=== PATIENT | female | born 1945 | race Caucasian/White ===

== ENCOUNTER 2019-01-10 11:17 | Inpatient (IN) | payer MEDICARE, MEDICAID ==
[~2019-01-10] VITALS: Ht 165.1 cm; Wt 67.6 kg
[2019-01-10] MEDS ORDERED: CYCL10TA9 PO (11:52)
[2019-01-10] MEDS ORDERED: METO25TA4 PO (11:52)
[2019-01-10] MEDS ORDERED: HYDR-3972 PO (11:52)
[2019-01-10] MEDS ORDERED: LISI2.5T2 PO (11:52)
[2019-01-10] MEDS ORDERED: CHOL200026 PO (11:52)
[2019-01-10] MEDS ORDERED: PANT40TA4 PO (11:52)
[2019-01-10] MEDS ORDERED: CYAN100T3 GT (11:52)
[2019-01-10] MEDS ORDERED: LEVO100T9 PO (11:52)
[2019-01-10] MEDS ORDERED: OMEG1CAP PO (11:52)
[2019-01-10] MEDS ORDERED: MULT1TAB73 PO (11:52)
[2019-01-10] MEDS ORDERED: PYRI50TA15 SL (11:52)
[2019-01-10] MEDS ORDERED: ACET-73 PO (11:52)
[2019-01-10] MEDS ORDERED: OLAN10TA3 PO (11:52)
[2019-01-10] MEDS ORDERED: SUCR1ORA4 PO (11:52)
[2019-01-10] MEDS ORDERED: MELA3TAB63 PO (11:52)
[2019-01-10] MEDS ORDERED: LEVO88TA5 PO (11:53)
[2019-01-10] MEDS ORDERED: ONDA4TAB5 PO (11:57)
[2019-01-10] MEDS ORDERED: DICL100G16 TP (11:57)
[2019-01-10] MEDS ORDERED: LORAZEPAM 0.5 MG TABLET PO PRN (12:30)
[2019-01-10] MEDS ORDERED: ACETAMINOPHEN 325 MG TABLET PO PRN (12:30)
[2019-01-10] MEDS ORDERED: MAGNESIUM HYDROXIDE 30 ML UDC PO PRN (12:30)
[2019-01-10] MEDS ORDERED: TEMAZEPAM 7.5 MG CAPSULE PO PRN (12:30)
[2019-01-10] MEDS ORDERED: BLOOD SUGAR DIAGNOSTIC 1 EACH STRIP IN ONE (12:30)
[2019-01-10] MEDS ORDERED: MAG HYDROX/AL HYDROX/SIMETH 30 ML UDC PO PRN (12:30)
[2019-01-10 12:36] VITALS: BP 136/83
[2019-01-10] MEDS ORDERED: ONDANSETRON 4 MG TAB.RAPDIS PO PRN (13:00)
[2019-01-10] MEDS ORDERED: DICLOFENAC TOPICAL 100 GM GEL..GM. TP SCH (13:00)
[2019-01-10] MEDS ORDERED: MISCELLANEOUS MED 1 EA EA PO PRN (13:00)
[2019-01-10] MEDS: SUCRALFATE 1 G/10 ML UDC PO SCH ×3 (13:00→21:00)
[2019-01-10] MEDS ORDERED: LISINOPRIL (5MG) 5 MG TABLET PO SCH (13:00)
[2019-01-10] MEDS ORDERED: HYDROCODONE/APAP 5/325MG 1 EACH TABLET PO PRN (13:00)
[2019-01-10] MEDS: CHOLECALCIFEROL 1,000 UNIT TABLET (VIT D3) PO SCH (13:00)
--- NOTE | 2019-01-10 13:00 | NUR ---
GPS/RN - Admission Patient is a 73 year old female brought in to the hospital from [facility] by ambulance, admitted on a 5150 as GD. Patient with paranoid delusions, hostility, precluding her from giving a rational plan for care. Patient believes that her medical records are being taped. she is perseverative on legal issues. Medical work-up negative thus far. Upon face to face assessment patient is A/O x 3, ambulatory, angry, sarcastic, uncooperative when being asked basic admission questions, paranoid, disheveled. Patient refused to sign consents, body assessment, Accu-check and MRSA surveillance protocol. Patient oriented to the unit, all valuables accounted and checked for contraband. Patient's rights handbook and guide to prescription given. Admission orders obtained from Dr. Gresham and Dr. Jordan. Will continue to monitor [id number] for safety and behavior.
[2019-01-10] MEDS ORDERED: METO25TA20 PO (13:12)
--- NOTE | 2019-01-10 13:20 | NUR ---
gps narrow fabrics weaver: notes dr. colorado notified re: metoprolol succinate inserted in med recon was an error and change to metoprolol tartrate 12.5mg po bid with order to d'c succinate and continue tartrate 12.5mg po bid. order read back and carried out.
[2019-01-10 16:00] VITALS: BP 143/94
[2019-01-10] MEDS: METOPROLOL TARTRATE 25 MG TABLET PO SCH (17:00)
[2019-01-10] MEDS ORDERED: METOPROLOL SUCCINATE 25 MG TAB.SR.24H PO SCH (17:00)
[2019-01-10 20:43] VITALS: BP 134/83
[2019-01-10] MEDS ORDERED: Medication Not On Formulary EA (Melatonin 3 MG) PO SCH (22:00)
[2019-01-10] MEDS ORDERED: CYCLOBENZAPRINE 10 MG TABLET PO SCH (22:00)
[2019-01-10] MEDS ORDERED: OLANZAPINE 10 MG TABLET PO SCH (22:00)
--- NOTE | 2019-01-10 22:00 | NUR ---
RN NOTES: PT. REFUSED NIGHT MEDS CARAFATE 10 ML, AND ENCOURAGED , EXPLAINED RISKS AND BENEFITS STILL REFUSED .
[2019-01-11] MEDS ORDERED: LEVOTHYROXINE SODIUM 88 MCG TABLET PO SCH (06:00)
[2019-01-11] MEDS ORDERED: PANTOPRAZOLE 40 MG TABLET.DR PO SCH (06:00)
[2019-01-11] MEDS ORDERED: Medication Not On Formulary EA (Omega-3 Fatty Acids/Fish Oil (Fish Oil 1,000 Mg Capsule) PO SCH (06:00)
[2019-01-11] MEDS ORDERED: PYRIDOXINE HCL 50 MG TABLET GT SCH (06:00)
[2019-01-11 07:45] LABS: CHOLESTEROL 174 mg/dL (<200); HDL CHOLESTEROL 53 mg/dL (40-60); LDL 96 mg/dL (0-99); TRIGLYCERIDES 152 mg/dL (30-150)
[2019-01-11 07:46] LABS: ALBUMIN 2.4 g/dL (3.4-5.0); BILIRUBIN,TOTAL 0.2 mg/dL (0.2-1.0); CALCIUM, SERUM 9.1 mg/dL (8.5-10.1); CREATININE 0.8 mg/dL (0.6-1.3); POTASSIUM 3.8 mmol/L (3.5-5.1); TOTAL PROTEIN, SERUM 5.4 g/dL (6.4-8.2)
[2019-01-11 08:00] VITALS: BP 149/85
[2019-01-11] MEDS: CHOLECALCIFEROL 1,000 UNIT TABLET (VIT D3) PO SCH (08:18)
[2019-01-11] MEDS: METOPROLOL TARTRATE 25 MG TABLET PO SCH ×2 (08:18→16:14)
[2019-01-11] MEDS: SUCRALFATE 1 G/10 ML UDC PO SCH ×3 (08:19→16:14)
[2019-01-11] MEDS ORDERED: LISINOPRIL (5MG) 5 MG TABLET PO SCH (09:00)
[2019-01-11] MEDS ORDERED: CYANOCOBALAMIN 100 MCG TABLET GT SCH (09:00)
[2019-01-11] MEDS ORDERED: MULTIVITAMINS,THERAGRAN 1 UDTAB TABLET PO SCH (09:00)
[2019-01-11] MEDS: CYCLOBENZAPRINE 10 MG TABLET PO SCH ×2 (12:08→16:14)
--- NOTE | 2019-01-11 15:24 | NUR ---
INITIAL DISCHARGE PLAN: Patient wishes to return home to [address] [place] [address] [address] [facility] [address] . SW will help form a safe and proper discharge in collaboration with .
[2019-01-11 16:00] VITALS: BP 131/87
[2019-01-11 16:14] VITALS: BP 131/87
--- NOTE | 2019-01-11 17:05 | NUR ---
DR. WALKER SPOKE TO THE PT. AND THEN ORDERED TO D/C HOLD AND D/C HOME AND TO FOLLOW UP WITH PSYCH AND MEDICAL DOCTORS. PT. WITHOUT DISTRESS, DENIES SUICIDAL AND HOMICIDAL. PER PT. SHE DOESN'T NEED PSYCH AND MEDICAL PRESCRIPTIONS AND SAID SHE STILL HAVE MEDS AT HOME. PT. WAS ADVISED TO MAKE A FOLLOW UP WITH OUTSIDE PSYCH AND MEDICAL DOCTORS AND AGREED. Addendum: 01/11/19 at 1722 by LEVI MANN RN PER PT.SHE DOESN'T HAVE ANY FAMILY OR TECHNICAL PRODUCER TO NOTIFY ABOUT HER DISCHARGE AND SAID SHE HAS THE MARTINEZ TO HER HOUSE. Addendum: 01/11/19 at 1753 by LEVI MANN RN PT. IS FOR DISCHARGE HOME WITH THE ADDRESS OF [address] [address].
--- NOTE | 2019-01-11 17:35 | NUR ---
GPS/RN - Discharge Note Rossi Mcpherson is a 73 year old female, discharged home in stable condition. Reviewed discharge instructions with patient and she verbalized full understanding. Patient advised to follow up with her PMD within one week. Patient is compliant with medications, cooperative with treatment plans. Patient is alert and oriented x 3, calm, ambulates with cane, steady gait, denies pain, not in any form of distress, afebrile. Patient denies suicidal ideation or homicidal ideation, no visual or auditory hallucinations at this time and instructed to go to the nearest ER if developing SI/HI. Patient refused pictures to be taken, skin is intact. Behavior improved, psychiatric treatment plans met, medical treatment plans deferred for continual monitoring. Medications reconciled with Dr. Gresham and Dr. Jordan. Per patient, she doesn't need any prescriptions she till have some at home. Educated patient about after care plan and copy provided. Returned all personal belongings to patient and she deny any missing items. Patient left the unit at 17:30 via taxi.
--- NOTE | 2019-01-12 08:34 | NUR ---
DISCHARGE NOTE: Pt was discharged on 01/11/19 at 1730 via [facility] home to [address] [facility] [address] [facility] [address] . Per nurse, psychiatrist Dr. Gresham discharged pt due to not meeting criteria for 5150 hold.
== END 2019-01-11 17:30 | disposition home or self-care (01) | DRG 885 ==
LOC: GPS 11:17
PROVIDERS: ADMIT Psychiatry & Neurology Psychiatry; ATTEND Internal Medicine
DX: F39 Unspecified mood [affective] disorder (principal); F23 Brief psychotic disorder; F41.9 Anxiety disorder, unspecified; G89.4 Chronic pain syndrome; M19.90 Unspecified osteoarthritis, unspecified site; I10 Essential (primary) hypertension; K21.9 Gastro-esophageal reflux disease without esophagitis; F32.9 Major depressive disorder, single episode, unspecified
CPT/HCPCS: 36415; 80053-TC; 80061-TC; 87081-TC

== ENCOUNTER 2019-02-07 02:02 | Inpatient (IN) | payer MEDICARE, OTHER ==
[~2019-02-07] VITALS: Ht 167.6 cm; Wt 63.0 kg
[~2019-02-07 02:02] MED LIST: ACET-73 PO; CHOL200026 PO; CYAN100T3 GT; CYCL10TA9 PO; DICL100G16 TP; HYDR-3972 PO; LEVO88TA5 PO; LISI2.5T2 PO; MELA3TAB63 PO; METO25TA20 PO; MULT1TAB73 PO; OLAN10TA3 PO; OMEG1CAP PO; ONDA4TAB5 PO; PANT40TA4 PO; PYRI50TA15 SL; SUCR1ORA4 PO
--- NOTE | 2019-02-07 02:30 | NUR ---
PT BIBRA AND [employer] FROM HOME. 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 [employer] WAS CALLED TO INVESTIGATE. PT APPEARED CONFUSED AND PT'S APARTMENT WAS FOUND FILTHY AND DISORGANIZED". PT WAS PLACED ON HOLD BY [employer] FOR BEING GRAVELY DISABLED. PT AWAKE, REFUSES TO ANSWER ASSESSMENT QUESTIONS. RESPIRATIONS EVEN AND UNLABORED. SKIN WARM AND INTACT. VITAL SIGNS STABLE. NO ACUTE DISTRESS NOTED AT THIS TIME. SITTER AT BEDSIDE. WILL CONTINUE TO MONITOR
--- NOTE | 2019-02-07 02:31 | NUR ---
BUTTON SEWING MACHINE OPERATOR AT BEDSIDE FOR BLOOD DRAW
--- NOTE | 2019-02-07 02:45 | NUR ---
URINE COLLECTED AND SENT TO LAB
[2019-02-07 02:46] LABS: BASOPHILS % (AUTO) 0.4 % (0.0-2.0); EOSINOPHILS % (AUTO) 0.5 % (0.0-6.0); HEMATOCRIT 42 % (33-45); HEMOGLOBIN 14.2 g/dL (11.5-14.8); LYMPHOCYTES # (AUTO) 1.5 /CMM (0.8-4.8); LYMPHOCYTES % (AUTO) 12.4 % (20.0-44.0); MEAN CORPUSCULAR HGB CONC 34 g/dl (31.0-36.0); MEAN CORPUSCULAR VOLUME 97 fL (82-100); MONOCYTES # (AUTO) 1.3 /CMM (0.1-1.30); MONOCYTES % (AUTO) 10.8 % (2.0-12.0); NEUTROPHILS # (AUTO) 8.9 /CMM (1.8-8.9); NEUTROPHILS % (AUTO) 75.9 % (43.0-81.0); PLATELET COUNT (AUTO) 380 /CMM (150-450); RED BLOOD CELL COUNT(AUTO) 4.37 MIL/uL (4.0-5.2); WHITE BLOOD COUNT (AUTO) 11.7 K/uL (4.3-11.0)
[2019-02-07 03:01] LABS: ALANINE AMINOTRANSFERASE 19 U/L (12-78); ALBUMIN 3.6 g/dL (3.4-5.0); ALKALINE PHOSPHATASE 82 U/L (46-116); ASPARTATE AMINOTRANSFERASE 17 U/L (15-37); BILIRUBIN,DIRECT 0.1 mg/dL (0.0-0.2); BILIRUBIN,TOTAL 0.4 mg/dL (0.2-1.0); CALCIUM, SERUM 10.4 mg/dL (8.5-10.1); CARBON DIOXIDE 22 mmol/L (21-32); CHLORIDE 93 mmol/L (98-107); CREATININE 1.2 mg/dL (0.6-1.3); GLUCOSE 132 mg/dL (74-106); SODIUM SERUM 134 mmol/L (136-145); TOTAL PROTEIN, SERUM 7.6 g/dL (6.4-8.2); UREA NITROGEN, BLOOD 8 mg/dL (7-18)
[2019-02-07 03:02] LABS: ACETAMINOPHEN 0 ug/ml (10-30); ALCOHOL, BLOOD < 3 mg/dL (0-0); POTASSIUM 2.8 mmol/L (3.5-5.1)
[2019-02-07] MEDS ORDERED: POTASSIUM CHLORIDE 20 MEQ TAB.PRT.SR PO ONE ×3 (03:30→03:47)
[2019-02-07 03:33] LABS: APPEARANCE,URINE SL CLOUDY (CLEAR); BILIRUBIN,URINE MODERATE (NEGATIVE); BLOOD, URINE SMALL Ery/uL (NEGATIVE); COLOR,URINE YELLOW (YELLOW); KETONES,URINE >=80 (NEGATIVE); LEUKOCYTE ESTERASE ,URINE LARGE (NEGATIVE); NITRITE, URINE NEGATIVE (NEGATIVE); PROTEIN,URINE TRACE mg/dl (NEGATIVE); UGLUCOSE NEGATIVE (NEGATIVE); UROBILINOGEN,URINE 0.2 EU/dL (0.2)
--- NOTE | 2019-02-07 03:49 | NUR ---
PER DR. LOPEZ, PT MEDICALLY CLEARED FOR PSYCH EVAL. CALLED ART, APPLIANCE REPAIR TECHNICIAN. ON THE WAY TO THE HOSPITAL
[2019-02-07 03:52] LABS: BACTERIA,URINE Few /HPF (None Seen); RBC,URINE 0-2 /HPF (0-2); WBC,URINE 0-2 /HPF (0-3)
[2019-02-07 03:53] LABS: SQUAMOUS EPITHELIAL CELL,UR 0-2 /HPF (None Seen)
[2019-02-07] MEDS ORDERED: NITROFURANTOIN/NITROFURAN MAC 100 MG CAPSULE ONE (04:07)
[2019-02-07] MEDS ORDERED: NITROFURANTOIN/NITROFURAN MAC 100 MG CAPSULE PO ONE (04:30)
--- NOTE | 2019-02-07 04:36 | NUR ---
PT TAKEN UP TO FLOOR VIA [facility]
[2019-02-07] MEDS ORDERED: ACETAMINOPHEN 325 MG TABLET PO PRN (05:00)
[2019-02-07] MEDS ORDERED: MAGNESIUM HYDROXIDE 30 ML UDC PO PRN (05:00)
[2019-02-07] MEDS ORDERED: MAG HYDROX/AL HYDROX/SIMETH 30 ML UDC PO PRN (05:00)
[2019-02-07] MEDS ORDERED: BLOOD SUGAR DIAGNOSTIC 1 EACH STRIP IN ONE (05:00)
--- NOTE | 2019-02-07 05:00 | NUR ---
Admitted a 73 y/o female from Home and evaluated at [facility] On 5150 hold as GD. Per hold, the patient is hoarder who is unable to care for herself, the apartment is filled with empty boxes, broken bottles, clothing and garbage. The patient does not have food and there are maggots in the refrigerator. Patient admitting Dx. Psychosis. Medical dx. hypothyroidism, afib, gerd, ibs, chronic pain. Patient is allergic to Percodan, aspirin and oxycodone . Upon face to face evaluation, patient appeared alert and oriented x 2, paranoid, suspicious, intermittent confusion, uncooperative, disorganize, disoriented. Explained the paper works and patient refused to sign the consents. Informed of visiting hours and unit policies. Belongings and contraband checked. Q15 min checks initiated. Care plan started. Vital signs checked and recorded. Patient's rights discussed, guide to prescription meds handbook provided. Patient advised of the hold. Notified Dr. Gresham of the admission. Will monitor patient for mood, safety and behavior. Will endorse to the day shift.
[2019-02-07 06:50] VITALS: BP 106/54
[2019-02-07 07:58] LABS: CREATININE 1.1 mg/dL (0.6-1.3)
[2019-02-07 08:00] VITALS: BP 131/99
[2019-02-07] MEDS: Z GUARD REMEDY 2 OZ OINT TP SCH (09:00)
--- NOTE | 2019-02-07 09:36 | NUR ---
RN NOTE: CONTACTED [facility] TO REACH DR REAL ABOUT REVIEWING MED RECON D/T NEW ADMIT Addendum: 02/07/19 at 1146 by TIO VEGA RN INFORMED DR REAL ABOUT ADMISSION, TO REVIEW MED RECON AND LABS INCLUDING HER POTASSIUM LEVELS.
[2019-02-07] MEDS ORDERED: SPIR100T5 PO (10:52)
[2019-02-07] MEDS ORDERED: LISI10TA5 PO (10:52)
[2019-02-07] MEDS ORDERED: ONDANSETRON 4 MG TAB.RAPDIS PO PRN (12:00)
--- NOTE | 2019-02-07 12:15 | NUR ---
Psychosocial Note: I, Leslee Pinzon STRIPPING SHOVEL OPERATOR, attest to the patients previous psychosocial information dated 01/11/19 Update On Events leading to Admission and Discharge Plan: Pt has returned to the hospital within three weeks of her previous discharge date. The current plan is to increase the patient on her medications and possibly explore SNF placement as pts current living conditions are inhabitable per psychiatric hold. The pt appeared to be in a dysphoric mood with an irritable affect. Pt appeared to be ambulatory, disheveled, and malodorous. Pt is alert and oriented x2, to self and place and her thought content is confused and disorganized with incoherent speech. Pt is currently denying any suicidal or homicidal ideation as well as any visual or auditory hallucinations. SW will work with the pt and the MD regarding appropriate discharge planning. SW will form a safe and proper discharge.
--- NOTE | 2019-02-07 12:53 | NUR ---
SPOKE TO PT. AND SAID THAT SHE IS NOT ALLERGIC ON NORCO.
--- NOTE | 2019-02-07 13:36 | NUR ---
SW received a [phone] [facility] # [id number] stating that [facility]] current living conditions are uninhabitable and that 9 cats were impounded from [facility]] apartment. Per Officer Robson, the cats had not eaten in days and also were not properly cared for.
--- NOTE | 2019-02-07 15:00 | NUR ---
Group Note: SW encouraged pt to participate in group on 02/07/19 at 2pm discussing social supports. Pt refused to attend because she stated that she does not need to be in the hospital and that she will be returning to her home soon. SW encouraged her to speak about some support in her life and the pt spoke about her cats.
[2019-02-07 16:00] VITALS: BP 105/63
--- NOTE | 2019-02-07 16:30 | NUR ---
Assumed care: Received pt. awake in her room, quiet, responsive to staffs, no distress and no agitation noted. Will continue to monitor for safety.
[2019-02-07 20:11] VITALS: BP 124/77
[2019-02-07] MEDS: CYCLOBENZAPRINE 10 MG TABLET PO SCH (21:10)
[2019-02-07] MEDS: risperiDONE 1 MG TABLET PO SCH (21:10)
[2019-02-08] MEDS: LEVOTHYROXINE SODIUM 112 MCG TABLET PO SCH (06:26)
[2019-02-08] MEDS: PANTOPRAZOLE 40 MG TABLET.DR PO SCH (06:26)
[2019-02-08] MEDS: LISINOPRIL (10MG) 10 MG TABLET PO SCH (06:26)
[2019-02-08 07:10] LABS: CALCIUM, SERUM 10.1 mg/dL (8.5-10.1)
[2019-02-08 07:17] LABS: POTASSIUM 2.7 mmol/L (3.5-5.1)
--- NOTE | 2019-02-08 07:51 | NUR ---
DR. REAL WAS NOTIFIED ABOUT THE POTASSIUM OF 2.7 AND ORDERED 80 MEQ OF PO KCL
[2019-02-08 08:00] VITALS: BP 97/60
[2019-02-08] MEDS: POTASSIUM CHLORIDE 20 MEQ TAB.PRT.SR PO ONE ×2 (08:01→08:15)
[2019-02-08] MEDS: risperiDONE 1 MG TABLET PO SCH ×2 (08:06→21:00)
[2019-02-08] MEDS: Z GUARD REMEDY 2 OZ OINT TP SCH (08:07)
--- NOTE | 2019-02-08 08:42 | NUR ---
JACKIE KELLEY (HAILEE) WAS NOTIFIED THAT PT. TOOK ONLY 1 TAB OF KCL EQUIVALENT OF 20 MEQ INSTEAD OF 4 TABS EQUIVALENT OF 80 MEQ. PT. REFUSED THE REST SAYING "IT'S TOO MUCH AND CAN'T ABSORB IT". EMBROIDERY SPECIALIST SAID OK.
[2019-02-08] MEDS ORDERED: SPIRONOLACTONE 50 MG TABLET PO SCH (09:00)
[2019-02-08] MEDS: SPIRONOLACTONE 25 MG TABLET PO SCH (09:00)
[2019-02-08] MEDS: CEPHALEXIN MONOHYDRATE 500 MG CAPSULE PO SCH ×2 (12:00→21:03)
--- NOTE | 2019-02-08 12:10 | NUR ---
PT REFUSED ANTIBIOTIC KEFLEX STATING THAT "THERE IS SOMETHING FUNNY ABOUT THIS PILL AND I WILL BE FINE WITHOUT IT". PT WAS EDUCATED ON ANTIBIOTIC NEED AND CONTINUED TO REFUSE.
--- NOTE | 2019-02-08 15:15 | NUR ---
GROUP NOTE: SW encouraged pt to participate in group on 02/08/19 at 2pm discussing "discharge planning." Pt refused stating that she did not need to attend a group to discuss her discharge, pt stated that she was going to be discharged today and that she wanted to go back home. SW provided intervention and discussed that pt is unable to care for herself at home and that her current living conditions are not safe and therefore may need SNF placement as discharging her home is not a safe discharge. Pt denied that her home was inhabitable and stated that she wanted to go back and that everything being said about her living conditions was a lie. Pts insight and judgement is poor and thought process is confused and disorganized.
[2019-02-08 16:00] VITALS: BP 90/59
--- NOTE | 2019-02-08 17:31 | NUR ---
TRANSFER OPERATOR IS MADE AWARE THAT PT. AGREED FOR POTASSIUM IV AND TOLD ABOUT THE LATEST V/S OF 1599 AND TRANSFER OPERATOR SAID SHE IS AWARE.
[2019-02-08 20:00] VITALS: BP 90/56
[2019-02-08] MEDS: CYCLOBENZAPRINE 10 MG TABLET PO SCH (21:02)
[2019-02-08 22:06] VITALS: BP 102/66
--- NOTE | 2019-02-09 03:30 | NUR ---
GPS RN NOTE, PATIENT VITAL SIGNS ARE FOLLOWS B/P 102/62, PULSE 92, RES 20, SPO2 99%, TEMP 97.9. PATIENT HAS A POTASSIUM LEVEL 2.7 AT 0630 02/08/19. PATIENT TOOK 20 MEQ OF K-DUR BUT REFUSED 60 MEQ OF K-DUR ON 02/08/19. PATIENT HAS A CBC, BMP, MAG, AND PHOS ORDERED FOR THIS A.M. AT 0600. PATIENT IS WILLING TO DO IV DRIP INFUSION. PAGED [facility] AND INFORMED ALISIA LUCAS DNP OF MY FINDINGS. ALISIA LUCAS DNP ORDERED TO WAIT FOR A.M. LAB RESULTS AND TO ENDORSE RESULTS TO ROUNDING MEDICAL DOCTOR IN THE A.M. WILL CONTINUE TO MONITOR THIS PATIENT.
[2019-02-09] MEDS: LISINOPRIL (10MG) 10 MG TABLET PO SCH (06:00)
[2019-02-09] MEDS: LEVOTHYROXINE SODIUM 112 MCG TABLET PO SCH (06:50)
[2019-02-09] MEDS: PANTOPRAZOLE 40 MG TABLET.DR PO SCH (06:50)
--- NOTE | 2019-02-09 06:58 | NUR ---
RN NOTES HELD LISINOPRIL 10 MG TAB PO FOR EPISODES OF LOW BP SINCE YESTERDAY DAY SHIFT AND THROUGHOUT THE SHIFT 90/56, 101/57,102/62. WILL ENDORSE TO AM NURSE FOR CONTINUITY OF CARE.
[2019-02-09 07:25] LABS: CALCIUM, SERUM 9.2 mg/dL (8.5-10.1); CREATININE 0.9 mg/dL (0.6-1.3); MAGNESIUM 1.3 mg/dL (1.8-2.4)
[2019-02-09 07:28] LABS: BASOPHILS # (AUTO) 0.1 /CMM (0.0-0.2); BASOPHILS % (AUTO) 0.8 % (0.0-2.0); EOSINOPHILS % (AUTO) 0.7 % (0.0-6.0); HEMATOCRIT 36 % (33-45); HEMOGLOBIN 12.1 g/dL (11.5-14.8); LYMPHOCYTES # (AUTO) 2.3 /CMM (0.8-4.8); LYMPHOCYTES % (AUTO) 21.1 % (20.0-44.0); MEAN CORPUSCULAR HGB CONC 34 g/dl (31.0-36.0); MEAN CORPUSCULAR VOLUME 97 fL (82-100); MONOCYTES # (AUTO) 1.4 /CMM (0.1-1.30); MONOCYTES % (AUTO) 12.7 % (2.0-12.0); NEUTROPHILS % (AUTO) 64.7 % (43.0-81.0); PLATELET COUNT (AUTO) 289 /CMM (150-450); WHITE BLOOD COUNT (AUTO) 10.8 K/uL (4.3-11.0)
[2019-02-09 08:00] VITALS: BP 96/67
[2019-02-09] MEDS: SPIRONOLACTONE 25 MG TABLET PO SCH (09:00)
[2019-02-09] MEDS: Z GUARD REMEDY 2 OZ OINT TP SCH (09:17)
[2019-02-09] MEDS: risperiDONE 1 MG TABLET PO SCH ×2 (09:17→20:40)
[2019-02-09] MEDS: CEPHALEXIN MONOHYDRATE 500 MG CAPSULE PO SCH ×2 (09:17→20:40)
[2019-02-09] MEDS ORDERED: MAGNESIUM OXIDE 400 MG TABLET PO ONE (09:30)
[2019-02-09] MEDS ORDERED: POTASSIUM CHLORIDE 20 MEQ TAB.PRT.SR PO ONE (09:30)
--- NOTE | 2019-02-09 10:55 | NUR ---
WOUND CARE CONSULT: PT PRESENTS INDEPENDENT WITH BED MOBILITY AND CONTINENT WITH SOME BLANCHABLE REDNESS TO BUTTOCKS, PRESENT ON ADMISSION. WILL SEE PRN.
--- NOTE | 2019-02-09 11:00 | NUR ---
GPS RN NOTE SPOKE WITH JACKIE KELLEY REGARDING PHOSPHOROUS 1.0, MAGNESIUM 1.3, AND POTASSIUM 3.0. PER ALLIE ORDERS ARE PLACED FOR REPLACEMENT AND FOLLOWED UP WITH. WILL CARRY OUT ORDERS.
[2019-02-09] MEDS ORDERED: NEUTRA PHOS 1 POWD.PACKET PO ONE (11:30)
--- NOTE | 2019-02-09 12:53 | NUR ---
GROUP NOTE: SW encouraged pt to attend group discussing "issues with current hospitalization." Pt refused to participate stating, "a group is not going to solve my issues, I want to leave." Pt then stated, "if you're not going to help me leave today then leave." SW attempted to provide intervention but pt was not cooperative.
[2019-02-09 16:00] VITALS: BP 106/70
--- NOTE | 2019-02-09 19:45 | NUR ---
GPS RN NOTE RECEIVED PATIENT IN AWAKE IN BED. TOLERATING ROOM AIR. RESPIRATIONS ARE EVEN AND UNLABORED. NO S/S SOB NOTED. NO C/O PAIN AT THIS TIME. IN NO APPARENT DISTRESS. A/O X2. ID BAND IS ON. PATIENT IS CALM, COOPERATIVE, DEMANDING, RESPONDS WHEN APPROACHED, IS INTERMITTENTLY CONFUSED. DENIES SI/HI. ENVIRONMENTAL CHECKS COMPLETED AT THIS TIME. ORIENTATED PATIENT ON HOW TO USE THE CALL JAMES. BED IS LOW AND LOCKED, SIDE RIALS UP X2, HOB ELEVATED 45 DEGREES, WILL CONTINUE TO MONITOR [id number] FOR SAFETY AND BEHAVIOR.
[2019-02-09 20:00] VITALS: BP 97/65
[2019-02-09 20:07] VITALS: BP 97/65
[2019-02-09] MEDS: CYCLOBENZAPRINE 10 MG TABLET PO SCH (21:10)
[2019-02-10] MEDS: LISINOPRIL (10MG) 10 MG TABLET PO SCH (06:00)
[2019-02-10 08:00] VITALS: BP 122/69
[2019-02-10] MEDS: SPIRONOLACTONE 25 MG TABLET PO SCH (08:31)
[2019-02-10] MEDS: LEVOTHYROXINE SODIUM 112 MCG TABLET PO SCH (08:31)
[2019-02-10] MEDS: PANTOPRAZOLE 40 MG TABLET.DR PO SCH (08:31)
[2019-02-10] MEDS: CEPHALEXIN MONOHYDRATE 500 MG CAPSULE PO SCH ×2 (08:32→21:42)
[2019-02-10] MEDS: Z GUARD REMEDY 2 OZ OINT TP SCH (08:33)
--- NOTE | 2019-02-10 08:40 | NUR ---
RN NOTE: PATIENT REFUSED 0900 LUVOX AND RISPERDAL. 0600 MEDS GIVEN FOR 0900 D/T FLYING SHEAR OPERATOR RN NOT ADMINISTERING AT PROPER TIME BESIDES LISINOPRIL.
[2019-02-10] MEDS: risperiDONE 1 MG TABLET PO SCH ×2 (08:41→21:00)
[2019-02-10] MEDS: FLUVOXAMINE MALEATE 50 MG TABLET PO SCH ×2 (08:41→17:31)
[2019-02-10 16:00] VITALS: BP 98/63
--- NOTE | 2019-02-10 16:21 | NUR ---
RITIKA NOTE: CONTACTED ALLIE IN REGARDS TO PATIENT'S POTASSIUM LEVELS. AWAITING RESPONSE. Addendum: 02/10/19 at 1759 by TIO EVGA RN INFORMED DR KELLEY THAT PATIENTS K+ LEVELS WERE 2.7 ON 02/08 THEN 3.0 ON 02/09. NEW ORDER FOR BMP FOR CURRENT K+ LEVELS.
[2019-02-10 19:19] LABS: CALCIUM, SERUM 9.3 mg/dL (8.5-10.1); CARBON DIOXIDE 26 mmol/L (21-32); CHLORIDE 101 mmol/L (98-107); GLUCOSE 137 mg/dL (74-106); POTASSIUM 3.8 mmol/L (3.5-5.1); SODIUM SERUM 136 mmol/L (136-145); UREA NITROGEN, BLOOD 10 mg/dL (7-18)
[2019-02-10 20:13] VITALS: BP 88/60
[2019-02-10] MEDS: CYCLOBENZAPRINE 10 MG TABLET PO SCH (21:42)
[2019-02-11] MEDS: PANTOPRAZOLE 40 MG TABLET.DR PO SCH (05:49)
[2019-02-11] MEDS: LEVOTHYROXINE SODIUM 112 MCG TABLET PO SCH (05:49)
[2019-02-11] MEDS: LISINOPRIL (10MG) 10 MG TABLET PO SCH (05:49)
[2019-02-11] MEDS: CEPHALEXIN MONOHYDRATE 500 MG CAPSULE PO SCH ×2 (08:44→21:00)
[2019-02-11] MEDS: Z GUARD REMEDY 2 OZ OINT TP SCH (08:44)
[2019-02-11] MEDS: SPIRONOLACTONE 25 MG TABLET PO SCH (09:00)
[2019-02-11] MEDS: FLUVOXAMINE MALEATE 50 MG TABLET PO SCH ×3 (09:00→16:12)
[2019-02-11 09:12] VITALS: BP 105/71
[2019-02-11] MEDS: risperiDONE 1 MG TABLET PO SCH ×2 (09:37→21:00)
[2019-02-11 09:45] VITALS: BP 91/65
--- NOTE | 2019-02-11 12:20 | NUR ---
RN NOTE: PT REFUSES LUVOX EVEN AFTER MULTIPLE ATTEMPTS AND EDUCATION STATING THAT SHE DOES NOT HAVE DEPRESSION OR ANXIETY AND DOES NOT NEED IT. Addendum: 02/11/19 at 1613 by THANH CABRERA RN PATIENT CONTINUES TO REFUSE LUVOX, INCLUDING PM DOSE. DR. KELLEY NOTIFIED. Addendum: 02/11/19 at 1740 by [address]H [address]RERA RN [address] WALKER NOTIFIED. ATTEMPTED TO ADMINISTERED MEDICATION BEDSIDE WITH DOCTOR WALKER BUT PATIENT CONTINUES TO REFUSE. PT REFUSES TO GET OUT OF BED AND IS DEMANDING BED BATH, SABRINA WATER FOR HER SKIN, AND OYSTERS. VERY DEMANDING AND CONFUSED.
[2019-02-11 16:00] VITALS: BP 90/50
[2019-02-11 20:00] VITALS: BP 90/53
[2019-02-11] MEDS: CYCLOBENZAPRINE 10 MG TABLET PO SCH (21:05)
--- NOTE | 2019-02-11 21:05 | NUR ---
GPS RN NOTE: PATIENT IS PARANOID, NEEDY, MANIPULATIVE, ENTITLED, REFUSED BODY CHECK AND HS MEDS AND KEEPS ON SAYING THAT THE MEDICATION OLD AND IT ONLY MAKES HER SICK, EXPLAINED THE RISK AND BENEFITS X 3 ATTEMPTS, ATTEMPTED TO CHANGE THE MEDICATIONS, REDIRECTED THE PATIENT, SNACKS GIVEN AND PATIENT KEEPS ON LOOKING ON DATES BEFORE ACCEPTING THE SNACKS, PATIENT STILL REFUSED MEDICATION AND BODY CHECK AFTER. WILL CONTINUE TO MONITOR Q15 MINS FOR SAFETY
[2019-02-12] MEDS: PANTOPRAZOLE 40 MG TABLET.DR PO SCH (05:42)
[2019-02-12] MEDS: LEVOTHYROXINE SODIUM 112 MCG TABLET PO SCH (05:42)
[2019-02-12] MEDS: LISINOPRIL (10MG) 10 MG TABLET PO SCH (05:43)
[2019-02-12 08:00] VITALS: BP 112/67
[2019-02-12] MEDS: SPIRONOLACTONE 25 MG TABLET PO SCH (08:22)
[2019-02-12] MEDS: risperiDONE 1 MG TABLET PO SCH ×2 (08:24→21:00)
[2019-02-12] MEDS: FLUVOXAMINE MALEATE 50 MG TABLET PO SCH ×3 (08:24→17:00)
[2019-02-12] MEDS: CEPHALEXIN MONOHYDRATE 500 MG CAPSULE PO SCH ×2 (08:24→21:00)
[2019-02-12] MEDS: Z GUARD REMEDY 2 OZ OINT TP SCH (08:25)
--- NOTE | 2019-02-12 09:36 | NUR ---
JEN FAXED SNF REFERRAL to [facility] Address: [address], [place] [address] for review.
--- NOTE | 2019-02-12 11:38 | NUR ---
JEN FAXED SNF REFERRAL to [facility] outpatient program coordinator at [facility] Address: [address], [place] [address] for review.
--- NOTE | 2019-02-12 11:38 | NUR ---
SW received a call from Bea, respiratory coordinator at [facility] Address: [address], [place] [address] who stated DON did not approve pt due to pts behavior issues and refusing medication.
--- NOTE | 2019-02-12 13:40 | NUR ---
SW received a call from Jackson, advertising coordinator at [facility] Address: [address], [place] [address] stating pt has been accepted to the facility.
--- NOTE | 2019-02-12 14:19 | NUR ---
INDIVIDUAL COUNSELING: SW attempted to speak to pt regarding her discharge plan. Pt was uncooperative and stated she needed her clothes because she was leaving today. Pt is cognitively impaired and unable to have a coherent conversation. Pt is also refusing to take medication.
[2019-02-12 19:46] VITALS: BP 113/75
[2019-02-12] MEDS: CYCLOBENZAPRINE 10 MG TABLET PO SCH (21:45)
--- NOTE | 2019-02-12 22:09 | NUR ---
GPS RN NOTE: PATIENT REFUSED RISPERDAL AND ANTIBIOTIC. PATIENT IS SELECTIVE WITH MEDS. EXPLAINED THE RISK AND BENEFITS X 3 ATTEMPTS, BUT PATIENT STILL REFUSED. PATIENT STATED THAT SHE NEEDS TO BE EVALUATED FIRST BY OTHER DOCTOR. WILL CONTINUE TO MONITOR Q15 MINS FOR SAFETY
[2019-02-13] MEDS: HYDROCODONE/APAP 5/325MG 1 EACH TABLET PO PRN ×2 (01:19→16:47)
[2019-02-13] MEDS: PANTOPRAZOLE 40 MG TABLET.DR PO SCH (06:34)
[2019-02-13] MEDS: LEVOTHYROXINE SODIUM 112 MCG TABLET PO SCH (06:34)
--- NOTE | 2019-02-13 06:34 | NUR ---
GPS RN NOTE: PATIENT REQUESTED TO HAVE HER LISINOPRIL 1 HOUR AFTER THE SYNTHROID, BP 111/68 P86, WILL ENDORSE TO THE NEXT SHIFT
[2019-02-13 08:00] VITALS: BP_SYST 114; BP_SYST 115; BP_DIAS 72
[2019-02-13] MEDS: risperiDONE 1 MG TABLET PO SCH ×2 (08:46→21:04)
[2019-02-13] MEDS: Z GUARD REMEDY 2 OZ OINT TP SCH (08:46)
[2019-02-13] MEDS: FLUVOXAMINE MALEATE 50 MG TABLET PO SCH ×3 (08:46→16:39)
[2019-02-13] MEDS: CEPHALEXIN MONOHYDRATE 500 MG CAPSULE PO SCH ×2 (08:48→21:04)
[2019-02-13] MEDS: SPIRONOLACTONE 25 MG TABLET PO SCH (08:48)
--- NOTE | 2019-02-13 08:50 | NUR ---
GPS MURAL ARTIST: NOTES PT STILL SELECTIVE WITH MEDICATIONS. PT AT FIRST WANTS TO TAKE ALDACTONE AND KEFLEX, BUT CHANGE HER MIND. DISCARDED OPENED MEDS TO BLUE INCINERATION AND RETURNED THE UNOPEN MEDS.
--- NOTE | 2019-02-13 12:19 | NUR ---
gps director wholesale: notes pt remains non-compliant with meds, still refuses taking luvox despite education provided.
[2019-02-13 15:54] VITALS: BP 105/71
--- NOTE | 2019-02-13 16:12 | NUR ---
Group Note: SW encouraged pt to attend group on 02/13/19 at 1pm discussing discharge planning. Pt stated that she is going to be discharged to [facility] and stated that she does not need to participate in group. Pt stated that she wanted to remain in her room laying down in her bed after lunch.
--- NOTE | 2019-02-13 16:47 | NUR ---
gps copy cutter: notes c/o 12/19 lower back pain, medicated with norco 1 tab po as ordered. still refusing due meds. instructed to call for assistance. will continue to monitor.
--- NOTE | 2019-02-13 17:47 | NUR ---
gps black top spreader machine operator: notes pt having dinner at this time in her room. voiced no discomfort. needs attended. no acute distress noted.
[2019-02-13 20:06] VITALS: BP 140/95
[2019-02-13] MEDS: CYCLOBENZAPRINE 10 MG TABLET PO SCH (21:04)
[2019-02-13 22:20] VITALS: BP 132/88
[2019-02-14] MEDS: LEVOTHYROXINE SODIUM 112 MCG TABLET PO SCH (05:51)
[2019-02-14] MEDS: PANTOPRAZOLE 40 MG TABLET.DR PO SCH (05:51)
[2019-02-14] MEDS: LISINOPRIL (10MG) 10 MG TABLET PO SCH (06:01)
[2019-02-14 08:00] VITALS: BP 113/62
[2019-02-14] MEDS: FLUVOXAMINE MALEATE 50 MG TABLET PO SCH ×3 (09:00→16:32)
[2019-02-14] MEDS: risperiDONE 1 MG TABLET PO SCH (09:00)
[2019-02-14] MEDS: SPIRONOLACTONE 25 MG TABLET PO SCH (09:25)
[2019-02-14] MEDS: CEPHALEXIN MONOHYDRATE 500 MG CAPSULE PO SCH ×2 (09:25→21:17)
[2019-02-14] MEDS: Z GUARD REMEDY 2 OZ OINT TP SCH (09:28)
--- NOTE | 2019-02-14 14:05 | NUR ---
JEN FAXED SNF REFERRAL to [place], group billing coordinator at [facility] Address: [address], [place] [address] for review.
[2019-02-14 16:00] VITALS: BP 100/60
[2019-02-14] MEDS: HYDROCODONE/APAP 5/325MG 1 EACH TABLET PO PRN (16:25)
[2019-02-14] MEDS: HALOPERIDOL 1 MG TABLET PO SCH (16:32)
[2019-02-14] MEDS: HALOPERIDOL LACTATE INJ 5 MG/ML VIAL IM PRN (16:33)
--- NOTE | 2019-02-14 17:52 | NUR ---
Patient threatening senior underwriter with prosecution related to psychiatric treatment against her will. Will continue to monitor and meet needs/goals for patient. Jose Miguel Trujillo RN
--- NOTE | 2019-02-14 19:30 | NUR ---
GPS OPENING NOTE. REPORT RECIEVED FROM BREANNA YOST. PATIENT AWAKE AND IN BED. DENIES PAIN AND DISPLAYS NO S/S OF APPARENT DISTRESS AT THIS TIME. BREATHING IS UNLABORED AND EVEN. PT ALERT AND ORIENTED X3 PT DENIES SI AND HI AT THIS TIME. PT VERBALIZED UNDERSTANDING TO CALL FOR ASSISTANCE NEEDED. BED LOCKED AND LOW WILL CONT TO MONITOR AND MAINTAIN SAFETY PER GPS PROTOOCOLS.
[2019-02-14 20:06] VITALS: BP 91/51
[2019-02-14] MEDS: CYCLOBENZAPRINE 10 MG TABLET PO SCH (21:17)
[2019-02-15] MEDS: PANTOPRAZOLE 40 MG TABLET.DR PO SCH (05:39)
[2019-02-15] MEDS: LEVOTHYROXINE SODIUM 112 MCG TABLET PO SCH (05:39)
[2019-02-15] MEDS: LISINOPRIL (10MG) 10 MG TABLET PO SCH (05:40)
[2019-02-15 08:00] VITALS: BP 107/67
[2019-02-15] MEDS: CEPHALEXIN MONOHYDRATE 500 MG CAPSULE PO SCH (08:22)
[2019-02-15] MEDS: HALOPERIDOL 1 MG TABLET PO SCH ×3 (08:26→16:26)
[2019-02-15] MEDS: FLUVOXAMINE MALEATE 50 MG TABLET PO SCH ×3 (08:26→16:26)
[2019-02-15] MEDS: SPIRONOLACTONE 25 MG TABLET PO SCH (08:26)
--- NOTE | 2019-02-15 08:27 | NUR ---
GPS RN NOTE: PATIENT REFUSED AM SPIRNOLACTONE BELIEVING THAT IT WAS PRESCRIBED FOR "HAIR GROWTH AND DOESN'T WORK". DESPITE EDUCATION ON DIURETIC PATIENT CONTINUES TO REFUSE MEDICATION. PATIENT ALSO REFUSED ALL PSYCH MEDS STATING THAT SHE DOES NOT NEED THEM, DEMANDS TO SPEAK TO DOCTOR AND STATED THAT SHE IS CURRENTLY IN A COURTROOM. Addendum: 02/15/19 at 1627 by THANH CABRERA RN PATIENT CONTINUES TO REFUSE HER PSYCHIATRIC MEDICATIONS DESPITE NUMEROUS ATTEMPTS AT EDUCATION. IS VERY AGGRESSIVE AND THREATENING TELLING RN SHE WILL HAVE NEITHER THE INJECTION (REISE) OR THE PO MEDS AND THE RN HAS "5 MINUTES TO GET OUT OF THE ROOM"
[2019-02-15] MEDS: Z GUARD REMEDY 2 OZ OINT TP SCH (08:50)
[2019-02-15] MEDS: HALOPERIDOL LACTATE INJ 5 MG/ML VIAL IM PRN ×2 (08:57→16:56)
[2019-02-15 16:00] VITALS: BP 98/53
[2019-02-15 20:27] VITALS: BP 100/64
[2019-02-15] MEDS: CYCLOBENZAPRINE 10 MG TABLET PO SCH (21:45)
--- NOTE | 2019-02-15 21:59 | NUR ---
GPS RN NOTE: PATIENT REFUSED SKIN ASSESSMENT. VERY UNCOOPERATIVE, NON COMPLAINT.
[2019-02-16] MEDS: LISINOPRIL (10MG) 10 MG TABLET PO SCH (06:53)
[2019-02-16] MEDS: PANTOPRAZOLE 40 MG TABLET.DR PO SCH (06:53)
[2019-02-16] MEDS: LEVOTHYROXINE SODIUM 112 MCG TABLET PO SCH (06:53)
[2019-02-16 08:00] VITALS: BP 115/71
[2019-02-16] MEDS: SPIRONOLACTONE 25 MG TABLET PO SCH (08:15)
[2019-02-16] MEDS: FLUVOXAMINE MALEATE 50 MG TABLET PO SCH ×3 (08:16→16:41)
[2019-02-16] MEDS: Z GUARD REMEDY 2 OZ OINT TP SCH (08:17)
[2019-02-16] MEDS: HALOPERIDOL LACTATE 10 MG/5 ML UDC PO SCH ×3 (09:00→16:45)
[2019-02-16] MEDS: HYDROCODONE/APAP 5/325MG 1 EACH TABLET PO PRN (09:02)
[2019-02-16] MEDS: HALOPERIDOL LACTATE INJ 5 MG/ML VIAL IM PRN ×3 (09:03→16:42)
--- NOTE | 2019-02-16 09:08 | NUR ---
RN NOTE: PT REFUSED 0900 PO HALDOL. HALDOL 1M IM GIVEN IN RIGHT GLUTEUS. PT MOIZ WELL.
--- NOTE | 2019-02-16 11:41 | NUR ---
SNF CONTACT: SW contacted to Olvin, quality control coordinator at [facility] Address: [address], [place] [address] to follow up on referral. Per Olvin, pt does not have any medical criteria therefore, DON has denied referral.
--- NOTE | 2019-02-16 12:57 | NUR ---
RN NOTE: PT REFUSED HALDOL PO. HALDOL IM 1MG GIVEN RIGHT GLUTEOUS. PT MOIZ WELL
--- NOTE | 2019-02-16 16:43 | NUR ---
RN NOTE: PT REUSED PT HALDOL. IM HALDOL 1MG GIVEN TO LEFT GLUTEOUS. PT MOIZ WELL.
--- NOTE | 2019-02-16 20:01 | NUR ---
GPS/RN NOTE: RECEIVED PATIENT RESTING IN BED COMFORTABLY, INTERMITTENTLY SLEEPING. NO SI/HI VERBALIZED AT THIS TIME. FALL MEASURES MAINTAINED. BED ALARM ON. BED IN LOWEST AND LOCKED POSITION. WILL CONTINUE TO MONITOR Q15 MINUTES FOR SAFETY AND BEHAVIOR.
[2019-02-16 20:12] VITALS: BP 105/68
--- NOTE | 2019-02-16 21:30 | NUR ---
GPS RN NOTE: PATIENT REFUSED SKIN ASSESSMENT. VERY UNCOOPERATIVE, NON COMPLAINT, DOES NOT WANT TO BE DISTURBED.
[2019-02-16] MEDS: CYCLOBENZAPRINE 10 MG TABLET PO SCH (21:59)
--- NOTE | 2019-02-16 21:59 | NUR ---
PATIENT REFUSED CYCLOBENZAPRINE 10MG, OFFERED X3 BUT STILL REFUSED.
[2019-02-17] MEDS: PANTOPRAZOLE 40 MG TABLET.DR PO SCH (06:00)
[2019-02-17] MEDS: LISINOPRIL (10MG) 10 MG TABLET PO SCH (06:00)
[2019-02-17] MEDS: LEVOTHYROXINE SODIUM 112 MCG TABLET PO SCH (06:00)
--- NOTE | 2019-02-17 06:26 | NUR ---
GPS RN NOTE: PATIENT REFUSED LISINOPRIL, PANTOPRAZOLE AND LEVOTHYROXINE, OFFERED X3 BUT CONTINUED REFUSING. PATIENT ALSO REFUSED TO CHECK HER BP DESPITE OF EXPLANATIONS OF RISKS AND BENEFITS.
[2019-02-17 08:00] VITALS: BP 101/71
[2019-02-17] MEDS: HALOPERIDOL LACTATE 10 MG/5 ML UDC PO SCH ×3 (08:01→17:24)
[2019-02-17] MEDS: FLUVOXAMINE MALEATE 50 MG TABLET PO SCH ×3 (08:03→17:24)
[2019-02-17] MEDS: Z GUARD REMEDY 2 OZ OINT TP SCH (08:03)
[2019-02-17] MEDS: SPIRONOLACTONE 25 MG TABLET PO SCH (08:03)
[2019-02-17 16:00] VITALS: BP 100/75
--- NOTE | 2019-02-17 19:28 | NUR ---
GPS/RN NOTE: RESTUNG IN BED, BREATHING PATTERN NON-LABORED, ETES CLOSED, COMFORTABLE, NO APPARENT DISTRESS NOTED.
[2019-02-17 20:26] VITALS: BP 112/65
[2019-02-17] MEDS: CYCLOBENZAPRINE 10 MG TABLET PO SCH (22:00)
--- NOTE | 2019-02-17 22:19 | NUR ---
GPS/RN NOTE: PATIENT STILL SLEEPING,NO APPARENT DISTRESS NOTED.
--- NOTE | 2019-02-17 23:18 | NUR ---
GPS/RN NOTE: PATIENT REFUSED TO TAKE MEDICATION, CYCLOBENZAPRINE DUE FOR 2200 TONIGHT.
[2019-02-18] MEDS: LISINOPRIL (10MG) 10 MG TABLET PO SCH (06:14)
[2019-02-18] MEDS: LEVOTHYROXINE SODIUM 112 MCG TABLET PO SCH (06:14)
[2019-02-18] MEDS: PANTOPRAZOLE 40 MG TABLET.DR PO SCH (06:14)
--- NOTE | 2019-02-18 06:14 | NUR ---
GPS/RN NOTE: PATIENT TOOK HER 0600 AM MEDICATIONS. PANTOPRAZOLE TAB, LEVOTHYROXINE TAB AND LISINOPRIL TAB. REFUSED HER CYCLOBENZAPRINE LAST NIGHT DUE FOR 2200.
--- NOTE | 2019-02-18 06:16 | NUR ---
GPS/RN NOTE: SLEPT MOSTLY DURING THE NIGHT, STABLE CONDITION. UP TO TOILET USING HER WALKER.
[2019-02-18 06:29] VITALS: BP 105/73
[2019-02-18 08:00] VITALS: BP 115/62
[2019-02-18] MEDS: SPIRONOLACTONE 25 MG TABLET PO SCH (08:28)
[2019-02-18] MEDS: HALOPERIDOL LACTATE 10 MG/5 ML UDC PO SCH ×4 (08:30→17:00)
[2019-02-18] MEDS: Z GUARD REMEDY 2 OZ OINT TP SCH (08:31)
[2019-02-18] MEDS: FLUVOXAMINE MALEATE 50 MG TABLET PO SCH ×3 (08:31→17:00)
[2019-02-18] MEDS: HYDROCODONE/APAP 5/325MG 1 EACH TABLET PO PRN ×2 (08:42→17:27)
[2019-02-18] MEDS: HALOPERIDOL LACTATE INJ 5 MG/ML VIAL IM PRN ×3 (08:43→17:54)
--- NOTE | 2019-02-18 08:43 | NUR ---
PT OFFERED PO HALDOL. PT REFUSED. HALDOL 1MG INJECTION GIVEN TO RIGHT GLUTTEOUS. PT MOIZ WELL.
--- NOTE | 2019-02-18 12:13 | NUR ---
RN NOTE: PT REFUSED PO HALDOL. HALDOL 1MG INJECTION GIVEN TO PTS LEFT GLUTEUS. PT MOIZ WELL.
[2019-02-18 16:00] VITALS: BP 110/69
--- NOTE | 2019-02-18 17:56 | NUR ---
RN NOTE: PT REFUSED HALDOL PO. PT MEDICATED WITH IM HALDOL IMG IN RIGHT GLUTEUS. PT MOIZ WELL
[2019-02-18] MEDS: CYCLOBENZAPRINE 10 MG TABLET PO SCH (22:04)
[2019-02-19] MEDS: PANTOPRAZOLE 40 MG TABLET.DR PO SCH (06:19)
[2019-02-19] MEDS: LISINOPRIL (10MG) 10 MG TABLET PO SCH (06:27)
[2019-02-19] MEDS: LEVOTHYROXINE SODIUM 112 MCG TABLET PO SCH (06:29)
[2019-02-19 08:00] VITALS: BP 100/63
[2019-02-19] MEDS: SPIRONOLACTONE 25 MG TABLET PO SCH (08:05)
[2019-02-19] MEDS: FLUVOXAMINE MALEATE 50 MG TABLET PO SCH ×4 (08:05→16:28)
[2019-02-19] MEDS: HYDROCODONE/APAP 5/325MG 1 EACH TABLET PO PRN ×2 (08:07→22:11)
[2019-02-19] MEDS: HALOPERIDOL LACTATE 10 MG/5 ML UDC PO SCH ×3 (08:14→16:28)
[2019-02-19] MEDS: Z GUARD REMEDY 2 OZ OINT TP SCH (08:14)
--- NOTE | 2019-02-19 08:15 | NUR ---
GPS RN NOTE: PT ADMINISTERED MEDICAL MEDICATIONS AND REQUESTED NORCO FOR BACK PAIN. REFUSING ALL PSYCHIATRIC MEDICATIONS. REISE HAS BEEN EXPLAINED AGAIN.
[2019-02-19] MEDS: HALOPERIDOL LACTATE INJ 5 MG/ML VIAL IM PRN ×3 (09:12→16:46)
[2019-02-19 16:00] VITALS: BP 90/55
--- NOTE | 2019-02-19 16:29 | NUR ---
GPS RN NOTE: PATIENT CONTINUES TO REFUSE PSYCHIATRIC MEDICATION. BELIEVES SHE IS CURRENTLY IN A COURT ROOM AND HAS A NEW COURT ORDER GIVEN BY "KAJAL" WHO SHE IS SPEAKING TO IN THE BEDROOM. EXPLAINED RIESE PROCEDURE AGAIN AND ATTEMPTED TO ADMINISTER PO MEDICATION. PATIENT STATES THAT WE ARE "ABUSING" AND "ASSAULTING" HER.
[2019-02-19 20:51] VITALS: BP 90/54
[2019-02-19] MEDS ORDERED: HALOPERIDOL LACTATE INJ 5 MG/ML VIAL IM SCH (21:00)
[2019-02-19] MEDS: CYCLOBENZAPRINE 10 MG TABLET PO SCH (21:05)
[2019-02-19] MEDS: HALOPERIDOL 1 MG TABLET PO SCH (21:14)
--- NOTE | 2019-02-19 23:40 | NUR ---
PT AGREED TO TAKE HALDOL (HALOPERIDOL) 1MG, 1 TAB PO, INSTEAD OF HALDOL LACTATE INJECTION 5 MG/ML VIAL.
[2019-02-20] MEDS: LISINOPRIL (10MG) 10 MG TABLET PO SCH (06:00)
[2019-02-20] MEDS: PANTOPRAZOLE 40 MG TABLET.DR PO SCH (06:19)
[2019-02-20] MEDS: LEVOTHYROXINE SODIUM 112 MCG TABLET PO SCH (06:19)
--- NOTE | 2019-02-20 06:24 | NUR ---
LEVOTHYROXINE 112 MG 1 TAB ADMINISTERED. WHEN PULLING MED LID CLOSED BEFORE I COULD PULL MED SO A SECOND ATTEMPT WAS MADE TO PULL MED
[2019-02-20 08:00] VITALS: BP 108/60
[2019-02-20] MEDS: SPIRONOLACTONE 25 MG TABLET PO SCH (08:51)
[2019-02-20] MEDS: HALOPERIDOL 1 MG TABLET PO SCH ×3 (08:52→16:54)
[2019-02-20] MEDS: FLUVOXAMINE MALEATE 50 MG TABLET PO SCH ×3 (08:53→16:56)
[2019-02-20] MEDS: Z GUARD REMEDY 2 OZ OINT TP SCH (08:54)
[2019-02-20] MEDS ORDERED: HALOPERIDOL LACTATE INJ 5 MG/ML VIAL IM PRN (09:00)
[2019-02-20] MEDS: HYDROCODONE/APAP 5/325MG 1 EACH TABLET PO PRN ×2 (09:35→16:55)
[2019-02-20 16:00] VITALS: BP 100/65
[2019-02-20 19:58] VITALS: BP 107/77
[2019-02-20] MEDS ORDERED: FLUVOXAMINE MALEATE 50 MG TABLET PO ONE ×2 (20:00)
[2019-02-20] MEDS: HALOPERIDOL LACTATE INJ 5 MG/ML VIAL IM SCH (20:00)
[2019-02-20] MEDS: OLANZAPINE 5 MG/TAB.RAPDIS PO SCH (20:12)
--- NOTE | 2019-02-20 20:30 | NUR ---
GPS RN NOTE: PATIENT COMPLIANT AND COOPERATIVE WITH HS MEDICATION. HALDOL IM SHOT NOT GIVEN. WILL CONTINUE TO MONITOR Q15 MINS FOR SAFETY
[2019-02-20] MEDS: CYCLOBENZAPRINE 10 MG TABLET PO SCH (21:19)
[2019-02-21] MEDS: LISINOPRIL (10MG) 10 MG TABLET PO SCH (06:00)
[2019-02-21] MEDS: LEVOTHYROXINE SODIUM 112 MCG TABLET PO SCH (06:46)
[2019-02-21] MEDS: PANTOPRAZOLE 40 MG TABLET.DR PO SCH (06:46)
[2019-02-21 08:00] VITALS: BP 105/68
[2019-02-21] MEDS: Z GUARD REMEDY 2 OZ OINT TP SCH (09:00)
[2019-02-21] MEDS: HALOPERIDOL LACTATE INJ 5 MG/ML VIAL IM SCH ×2 (09:00→21:00)
[2019-02-21] MEDS: OLANZAPINE 5 MG/TAB.RAPDIS PO SCH ×2 (09:01→21:22)
[2019-02-21] MEDS: SPIRONOLACTONE 25 MG TABLET PO SCH (09:04)
[2019-02-21] MEDS: FLUVOXAMINE MALEATE 50 MG TABLET PO SCH ×3 (09:04→16:57)
[2019-02-21] MEDS: HYDROCODONE/APAP 5/325MG 1 EACH TABLET PO PRN (12:39)
--- NOTE | 2019-02-21 12:39 | NUR ---
RN NOTE" PT C/O 11/18 NECK, SHOULDER AND LOWER BACK PAIN. MED WITH NORCO PRN.
[2019-02-21 16:00] VITALS: BP 115/79
[2019-02-21 20:00] VITALS: BP 114/61
[2019-02-21 20:15] VITALS: BP 104/61
[2019-02-21] MEDS: CYCLOBENZAPRINE 10 MG TABLET PO SCH (21:22)
--- NOTE | 2019-02-21 23:59 | NUR ---
TRUCK RAILROAD AND BUS MOTOR MECHANIC NOTES PT CHECKED IN HER ROOM SAW HER SLEEPING COMFORTABLY IN BED WITHOUT ANY ACUTE DISTRESS NOTED. KEPT HER WARM AND COMFORTABLE AT ALL TIMES. WILL CONTINUE MONITORING.
[2019-02-22] MEDS: PANTOPRAZOLE 40 MG TABLET.DR PO SCH (05:25)
[2019-02-22] MEDS: LEVOTHYROXINE SODIUM 112 MCG TABLET PO SCH (05:25)
[2019-02-22] MEDS: LISINOPRIL (10MG) 10 MG TABLET PO SCH (05:32)
--- NOTE | 2019-02-22 06:04 | NUR ---
commercial stripper notes pt woke up and blood pressure checked 100/59. hold lisinopril and pt refused to take it as well. request to have a juice that i will mixed it last night. slept well and no agitation and stable jaymie the night.
--- NOTE | 2019-02-22 07:32 | NUR ---
rn notes pt sleeping in bed; easily arousable. no significant behavioral changes noted at this time. safety ensured. will monitor.
[2019-02-22 08:00] VITALS: BP 127/74
[2019-02-22] MEDS: HALOPERIDOL LACTATE INJ 5 MG/ML VIAL IM SCH ×2 (09:00→21:00)
[2019-02-22] MEDS: OLANZAPINE 5 MG/TAB.RAPDIS PO SCH ×2 (09:26→21:08)
[2019-02-22] MEDS: SPIRONOLACTONE 25 MG TABLET PO SCH (09:26)
[2019-02-22] MEDS: FLUVOXAMINE MALEATE 50 MG TABLET PO SCH ×4 (09:27→21:07)
[2019-02-22] MEDS: Z GUARD REMEDY 2 OZ OINT TP SCH (09:28)
--- NOTE | 2019-02-22 14:33 | NUR ---
SS Group Note: Goal: Patient will attend group held today from 1:00pm-3:00pm in the activities room and participate and/or actively listen to peers and be respectful. Intervention: SW facilitated group session with patients regarding sensory activity for the . SW explored what tastes, smells, sounds, and sights come to mind when thinking about the iday season and gratefulness. Response: Patient was agreeable to participating in group session. The patient expressed enjoying the season because it brings people together to share a meal. The pt. expressed, I love the smell of pumpkin pie and I am very grateful for my cats. They bring me tadeo.. Patient was alert remained calm and cooperative throughout session. The patient was respectful towards her peers when they shared. Plan: Patient will be invited to attend next healthcare social worker group session held.
[2019-02-22 16:00] VITALS: BP 116/72
--- NOTE | 2019-02-22 18:39 | NUR ---
RN CLOSING NOTES PT IN BED, PARTICIPATED WITH ACTIVITIES DURING THE DAY, INTERACTED WITH STAFF. COMPLIANT WITH MOST OF HER DUE MEDS. NO C/O PAIN MADE. ISOLATIVE AT CERTAIN TIMES, NO BEHAVIORAL SIGNIFICANT CHANGES NOTED. NO SIGNS OF SUICIDAL IDEATION NOTED. WILL ENDORSE TO NEXT SHIFT IN STABLE CONDITION FOR CONTINUITY OF CARE.
[2019-02-22] MEDS: CYCLOBENZAPRINE 10 MG TABLET PO SCH (21:08)
[2019-02-22 21:31] VITALS: BP 114/79
[2019-02-22] MEDS: HYDROCODONE/APAP 5/325MG 1 EACH TABLET PO PRN (23:59)
--- NOTE | 2019-02-23 00:46 | NUR ---
GPS RN NOTES: PAGED DR. SULLIVAN REGARDING PATIENT'S MUSCLE SPASMS AND COMPLAINS OF PAIN DESPITE THE FLEXERIL AND THE NORCO MEDICATION. DR. SULLIVAN CALLED BACK AND GAVE AN ADDITIONAL DOSE ORDER OF NORCO 5-325MG PO ONE TIME ONLY. NOTED AND CARRIED OUT. WILL MONITOR PATIENT'S PAIN AND MUSCLE SPASMS.
[2019-02-23] MEDS ORDERED: HYDROCODONE/APAP 5/325MG 1 EACH TABLET PO ONE (01:00)
[2019-02-23] MEDS: LISINOPRIL (10MG) 10 MG TABLET PO SCH (06:00)
[2019-02-23] MEDS: PANTOPRAZOLE 40 MG TABLET.DR PO SCH (06:03)
[2019-02-23] MEDS: LEVOTHYROXINE SODIUM 112 MCG TABLET PO SCH (06:03)
[2019-02-23 07:37] LABS: CALCIUM, SERUM 9.2 mg/dL (8.5-10.1); CREATININE 0.8 mg/dL (0.6-1.3)
[2019-02-23 08:00] VITALS: BP 112/77
[2019-02-23] MEDS: SPIRONOLACTONE 25 MG TABLET PO SCH (08:44)
[2019-02-23] MEDS: OLANZAPINE 5 MG/TAB.RAPDIS PO SCH ×2 (08:44→22:00)
[2019-02-23] MEDS: Z GUARD REMEDY 2 OZ OINT TP SCH (08:47)
[2019-02-23] MEDS: FLUVOXAMINE MALEATE 50 MG TABLET PO SCH ×3 (08:54→21:51)
[2019-02-23] MEDS: HALOPERIDOL LACTATE INJ 5 MG/ML VIAL IM SCH (08:57)
--- NOTE | 2019-02-23 08:59 | NUR ---
RN NOTE: NO BACK UP HALDOL INJ GIVEN PT TOOK ZYPE Addendum: 02/23/19 at 0900 by STERLING RIVERA RN PT TOOK LYRIC WARD ORDERED
--- NOTE | 2019-02-23 14:58 | NUR ---
SS Group Note 02/23/19: SW went to patient's room to invite patient to attend today's support group at 1:00pm regarding Mindfulness being held in the activities room. Patient presented laying on her bed sleeping. SW attempted to wake patient but they were not easily rousable. SW will invite and encourage pt. to attend the next SS group.
[2019-02-23 16:00] VITALS: BP 107/64
[2019-02-23 20:06] VITALS: BP 124/79
[2019-02-23] MEDS: CYCLOBENZAPRINE 10 MG TABLET PO SCH (21:51)
--- NOTE | 2019-02-23 22:02 | NUR ---
GPS RN NOTES: PT REFUSED SCHEDULE MEDICATION ZYPREXA 10MG @2200. EXPLAINED RISKS AND BENEFITS X3 STILL REFUSED. PT STATED, " WHO EVER ORDERED THIS MEDICATION IS NOT A DR AND I WILL NOT TAKE IT." EDUCATED PT. PT STILL REFUSED. CONT TO MONITOR.
[2019-02-24] MEDS: PANTOPRAZOLE 40 MG TABLET.DR PO SCH (05:18)
[2019-02-24] MEDS: LEVOTHYROXINE SODIUM 112 MCG TABLET PO SCH (05:18)
[2019-02-24] MEDS: LISINOPRIL (10MG) 10 MG TABLET PO SCH (05:21)
--- NOTE | 2019-02-24 05:29 | NUR ---
GPS RN NOTES: HELD PT SCHEDULE MEDICATION LISINOPRIL 10MG. BLOOD PRESSURE WAS LOW AT 100/62. NO S/S OF PAIN OR RESP DISTRESS. CONTINUE TO MONITOR.
[2019-02-24 08:00] VITALS: BP 105/62
[2019-02-24] MEDS: SPIRONOLACTONE 25 MG TABLET PO SCH (09:00)
[2019-02-24] MEDS: FLUVOXAMINE MALEATE 50 MG TABLET PO SCH ×3 (09:00→21:53)
[2019-02-24] MEDS: OLANZAPINE 5 MG/TAB.RAPDIS PO SCH ×2 (09:00→21:53)
[2019-02-24] MEDS: Z GUARD REMEDY 2 OZ OINT TP SCH (09:18)
--- NOTE | 2019-02-24 09:27 | NUR ---
GPS/RN PT REFUSED AM MEDS OFFERED X3
[2019-02-24 16:00] VITALS: BP 109/66
--- NOTE | 2019-02-24 19:24 | NUR ---
GPS/RN NOTE: AWAKE, ALERT, ORIENTED X2, PLEASANT DURING INITIAL ROUNDING. DENIES ANY ANY PAIN AT THIS TIME. INTERACTES WHEN ENGAGED. WILL CONTINUE TO MONITOR TO MAINTAIN SAFETY DURING THE SHIFT.
[2019-02-24 20:00] VITALS: BP 143/87
--- NOTE | 2019-02-24 20:22 | NUR ---
GPS/RN NOTE: PATIENT WAS GIVEN SANDWICH AND 2 JUICE PER HER REQUEST AND REFUSING HER NIGHT MEDS FOR 2200, STATED THAT SHE IS NOT TAKING THOSE MEDICATIONS ANYMORE.
[2019-02-24] MEDS: CYCLOBENZAPRINE 10 MG TABLET PO SCH (21:29)
[2019-02-24] MEDS: HYDROCODONE/APAP 5/325MG 1 EACH TABLET PO PRN (21:30)
--- NOTE | 2019-02-24 21:30 | NUR ---
GPS/RN NOTE: C/O BACK PAIN, 7/10 ON PAIN SCALE, HYDROCODONE 5/325 MG TAB PO GIVEN.
--- NOTE | 2019-02-24 21:31 | NUR ---
GPS/RN NOTE: TOOK HER FLEXERIL TAB TONIGHT, REFUSED FLUVOXAMINE AND OLANZAPINE DOSE TONIGHT.
[2019-02-25] MEDS: HYDROCODONE/APAP 5/325MG 1 EACH TABLET PO PRN ×3 (05:55→23:50)
--- NOTE | 2019-02-25 05:58 | NUR ---
GPS/RN NOTE: REPORTED BACK PAIN, 7/10 ON PAIN SCALE, NORCO TAB 1 PO GIVEN.
--- NOTE | 2019-02-25 06:04 | NUR ---
GPS/RN NOTE: LATEST BP NOW 115/70, PULSE 90. REQUESTING FOR HER 06 MEDS THIS MORNING.
[2019-02-25] MEDS: PANTOPRAZOLE 40 MG TABLET.DR PO SCH (06:10)
[2019-02-25] MEDS: LISINOPRIL (10MG) 10 MG TABLET PO SCH (06:10)
[2019-02-25] MEDS: LEVOTHYROXINE SODIUM 112 MCG TABLET PO SCH (06:10)
--- NOTE | 2019-02-25 06:10 | NUR ---
GPS/RN NOTE: LISINOPRIL 10 OF WHICH MG 1/2 TAB WAS GIVEN PER PATIENT'S REQUEST THIS AM 06
[2019-02-25 08:00] VITALS: BP 140/70
[2019-02-25] MEDS: SPIRONOLACTONE 25 MG TABLET PO SCH (08:11)
[2019-02-25] MEDS: FLUVOXAMINE MALEATE 50 MG TABLET PO SCH ×3 (08:13→21:50)
[2019-02-25] MEDS: Z GUARD REMEDY 2 OZ OINT TP SCH (08:13)
[2019-02-25] MEDS: OLANZAPINE 5 MG/TAB.RAPDIS PO SCH ×2 (08:13→21:50)
--- NOTE | 2019-02-25 14:09 | NUR ---
RN NOTE: PT C/O 11/18 NECK, SHOULDER AND LOWER BACK PAIN. MEDICATED WITH NORCO PRN.
[2019-02-25 16:00] VITALS: BP 132/67
[2019-02-25 19:49] VITALS: BP 104/69
[2019-02-25] MEDS: CYCLOBENZAPRINE 10 MG TABLET PO SCH (21:49)
--- NOTE | 2019-02-25 21:51 | NUR ---
GPS RN NOTE: PATIENT REFUSED LUVOX AND ZYPREXA, EXPLAINED THE RISK AND BENEFITS X 3 ATTEMPTS, PATIENT STILL REFUSED AND STATED "I DONT NEED IT". WILL CONTINUE TO MONITOR Q15 MINS FOR SAFETY
[2019-02-26] MEDS: LISINOPRIL (10MG) 10 MG TABLET PO SCH (05:50)
[2019-02-26] MEDS: LEVOTHYROXINE SODIUM 112 MCG TABLET PO SCH (05:50)
[2019-02-26] MEDS: PANTOPRAZOLE 40 MG TABLET.DR PO SCH (05:50)
[2019-02-26 08:00] VITALS: BP 124/77
--- NOTE | 2019-02-26 08:00 | NUR ---
PT REFUSED LUVOX AND ZYPREXA. EDUCATED PT ON NEED FOR MEDICATION. PT CONTINUED TO REFUSE. DR. MOTA AWARE. WILL CONT TO MONITOR
[2019-02-26] MEDS: HYDROCODONE/APAP 5/325MG 1 EACH TABLET PO PRN ×2 (08:11→16:57)
[2019-02-26] MEDS: SPIRONOLACTONE 25 MG TABLET PO SCH (08:11)
--- NOTE | 2019-02-26 08:11 | NUR ---
PT MEDICATED WITH NORCO 5MG PO PRN FOR 8/10 NECK, SHOULDER AND LOWER BACK PAIN.
[2019-02-26] MEDS: OLANZAPINE 5 MG/TAB.RAPDIS PO SCH ×2 (08:12→21:38)
[2019-02-26] MEDS: Z GUARD REMEDY 2 OZ OINT TP SCH (08:12)
[2019-02-26] MEDS: FLUVOXAMINE MALEATE 50 MG TABLET PO SCH ×2 (08:12→16:56)
--- NOTE | 2019-02-26 15:40 | NUR ---
GROUP NOTE: SW assessed pts ability to participate in group therapy discussing "discharge planning." Pt refused to participate and was verbally aggressive and told SW to leave her room and that she did not need help.
[2019-02-26 16:00] VITALS: BP 111/70
--- NOTE | 2019-02-26 16:57 | NUR ---
RN NOTE: PT C/O 11/18 NECK, BACK AND SHOULDER PAIN. MED WITH NORCO 5MG PO. PT REFUSED 1700 LUVOX.
[2019-02-26 20:57] VITALS: BP 107/74
--- NOTE | 2019-02-26 21:08 | NUR ---
RN NOTES PATIENT REFUSED ZYPREXA 2200 DOSE X3. PATIENT EDUCATION ON RISK AND BENEFITS REINFORCED. WILL CONTINUE TO MONITOR.
[2019-02-26] MEDS: CYCLOBENZAPRINE 10 MG TABLET PO SCH (21:33)
[2019-02-27] MEDS: LISINOPRIL (10MG) 10 MG TABLET PO SCH ×2 (06:00→06:06)
[2019-02-27] MEDS: LEVOTHYROXINE SODIUM 112 MCG TABLET PO SCH (06:01)
[2019-02-27] MEDS: PANTOPRAZOLE 40 MG TABLET.DR PO SCH (06:01)
[2019-02-27] MEDS: HYDROCODONE/APAP 5/325MG 1 EACH TABLET PO PRN ×3 (06:02→23:38)
--- NOTE | 2019-02-27 06:02 | NUR ---
RN NOTES ADMINISTERED NORCO 5/325 ORDERED AT PATIENT REQUEST FOR GENERALIZED BODY PAIN 01/18. VSS. WILL CONTINUE TO MONITOR.
[2019-02-27 08:00] VITALS: BP 101/69
[2019-02-27] MEDS: FLUOXETINE HCL 20 MG CAPSULE PO SCH (09:00)
[2019-02-27] MEDS: OLANZAPINE 5 MG/TAB.RAPDIS PO SCH ×2 (09:00→21:41)
[2019-02-27] MEDS: SPIRONOLACTONE 25 MG TABLET PO SCH (09:00)
[2019-02-27] MEDS: Z GUARD REMEDY 2 OZ OINT TP SCH (09:05)
--- NOTE | 2019-02-27 09:11 | NUR ---
RN NOTE: PATIENT REFUSED 0900 MEDICATIONS x3. RISK AND BENEFITS EXPLAINED. WILL CONTINUE TO MONITOR.
--- NOTE | 2019-02-27 15:06 | NUR ---
RN NOTE: PATIENT C/O 7/10 PAIN TO BILATERAL KNEES. ADMINISTERED PRN NORCO.
--- NOTE | 2019-02-27 15:15 | NUR ---
Group Note: SW encouraged the pt to attend group therapy on 02/27/19 at 2pm on the topic of discharge planning. SW assessed pts ability to participate in group therapy. Pt is noncompliant with her medications and has been verbally aggressive. Pt stated that she did not need group therapy.
[2019-02-27 16:00] VITALS: BP_SYST 126; BP_SYST 141; BP_DIAS 79; BP_DIAS 81
[2019-02-27 20:24] VITALS: BP 109/78
[2019-02-27] MEDS: CYCLOBENZAPRINE 10 MG TABLET PO SCH (21:12)
--- NOTE | 2019-02-27 21:42 | NUR ---
RN NOTES PATIENT REFUSED ZYPREXA 10MG PO. RISK AND BENEFITS EXPLAINED. PATIENT STILL REFUSED. WILL CONTINUE TO MONITOR.
--- NOTE | 2019-02-27 22:10 | NUR ---
RN NOTES PATIENT REFUSED TO STAY IN HER ROOM. PER PATIENT,"MY ROOM MATE SCREAMS A LOT AND SHE CAN BE AGGRESSIVE." EXPLAINED TO HER THAT HER ROOM MATE IS ALREADY SLEEPING AND THAT SHE HAS NOT BEEN AGGRESSIVE SINCE THE SHIFT STARTED BUT THE PATIENT STILL REFUSED. CHARGE NURSE MADE AWARE. PATIENT TRANSFERRED TO ROOM 211-2.
--- NOTE | 2019-02-27 23:39 | NUR ---
RN NOTES PATIENT C/O LOWER BACK PAIN. REQUESTED FOR PAIN MEDICATION. NORCO 5 PO GIVEN ORDERED. WILL CONTINUE TO MONITOR
[2019-02-28] MEDS: LISINOPRIL (10MG) 10 MG TABLET PO SCH (05:49)
[2019-02-28] MEDS: LEVOTHYROXINE SODIUM 112 MCG TABLET PO SCH (05:50)
[2019-02-28] MEDS: PANTOPRAZOLE 40 MG TABLET.DR PO SCH (05:50)
[2019-02-28 08:00] VITALS: BP 112/73
[2019-02-28] MEDS: SPIRONOLACTONE 25 MG TABLET PO SCH (08:14)
[2019-02-28] MEDS: FLUOXETINE HCL 20 MG CAPSULE PO SCH (08:14)
[2019-02-28] MEDS: OLANZAPINE 5 MG/TAB.RAPDIS PO SCH (08:18)
[2019-02-28] MEDS: Z GUARD REMEDY 2 OZ OINT TP SCH (08:26)
[2019-02-28] MEDS: HYDROCODONE/APAP 5/325MG 1 EACH TABLET PO PRN (10:03)
--- NOTE | 2019-02-28 10:04 | NUR ---
RN NOTE- PT C/O PAIN TO LOWER BACK. PRN NORCO GIVEN
[2019-02-28 16:00] VITALS: BP 137/89
[2019-02-28] MEDS: FLUPHENAZINE HCL 10 MG TABLET PO SCH ×2 (16:59→17:20)
[2019-02-28 20:09] VITALS: BP 123/83
[2019-02-28] MEDS: CYCLOBENZAPRINE 10 MG TABLET PO SCH (21:08)
[2019-03-01] MEDS: PANTOPRAZOLE 40 MG TABLET.DR PO SCH (05:22)
[2019-03-01] MEDS: LISINOPRIL (10MG) 10 MG TABLET PO SCH (05:22)
[2019-03-01] MEDS: LEVOTHYROXINE SODIUM 112 MCG TABLET PO SCH (05:22)
--- NOTE | 2019-03-01 05:25 | NUR ---
network solutions architect notes] pt woke up , calmed , blood pressure checked 132/75, routine meds given as ordered and pt tolerated well . denies any pain or any discomfort. kept her warm and comfortable at all times. will continue monitoring.
--- NOTE | 2019-03-01 06:55 | NUR ---
bird sitter closing notes pt back to sleep after taken her routine meds. stable jaymie the night and slept well. no signs of any agitation noted. compliance with her medication and ate well. all due meds given and all needs met. kept her warm and comfortable at all times. endorse to am nurse for continuity of care.
[2019-03-01 08:00] VITALS: BP 122/73
[2019-03-01] MEDS: FLUPHENAZINE HCL 10 MG TABLET PO SCH ×3 (08:31→16:17)
[2019-03-01] MEDS: SPIRONOLACTONE 25 MG TABLET PO SCH (08:31)
[2019-03-01] MEDS: Z GUARD REMEDY 2 OZ OINT TP SCH (08:31)
[2019-03-01] MEDS: FLUOXETINE HCL 20 MG/5 ML UDC PO SCH ×2 (08:57→16:19)
--- NOTE | 2019-03-01 08:57 | NUR ---
PATIENT REFUSED 0900 [facility]
[2019-03-01 16:00] VITALS: BP 121/67
--- NOTE | 2019-03-01 19:30 | NUR ---
GPS RN NOTE, RECEIVED PATIENT AWAKE AND IN BED, NO S/S OR COMPLAINTS OF PAIN AT THIS TIME. PATIENT IS DISPLAYING NO S/S OF APPARENT DISTRESS AT THIS TIME. PATIENT BREATHING IS UNLABORED WITH EQUAL RISE AND FALL OF THE CHEST. PATIENT IS ALERT AND ORIENTED X 2 ON ROOM AIR WITH A SPO2 99%. PATIENT COMPLAINT WITH MEDICATION, ANXIOUS, COOPERATIVE AT TIMES, GUARDED, SUSPICIOUS, AND NEEDS REORIENTATION. PATIENT DENIES SUICIDE AND HOMICIDAL IDEATIONS AT THIS TIME. PATIENT ASSISTED WITH TURNING AND REPOSITIONING Q2HR AND PRN FOR COMFORT AND CIRCULATION. PATIENT HAS NO NEEDS AT THIS TIME. PATIENT EDUCATED ON THE USE OF THE CALL JAMES. PATIENT BED SIDE RAILS UP X2 FOR SAFETY, BED IS LOCKED AND LOW WILL CONTINUE TO MONITOR AND MAINTAIN SAFETY.
[2019-03-01 20:25] VITALS: BP 119/69
[2019-03-01] MEDS: CYCLOBENZAPRINE 10 MG TABLET PO SCH (21:22)
[2019-03-02] MEDS: HYDROCODONE/APAP 5/325MG 1 EACH TABLET PO PRN ×3 (00:55→23:07)
[2019-03-02] MEDS: PANTOPRAZOLE 40 MG TABLET.DR PO SCH (06:13)
[2019-03-02] MEDS: LEVOTHYROXINE SODIUM 112 MCG TABLET PO SCH (06:14)
[2019-03-02] MEDS: LISINOPRIL (10MG) 10 MG TABLET PO SCH (06:22)
[2019-03-02 08:00] VITALS: BP 119/70
[2019-03-02] MEDS: SPIRONOLACTONE 25 MG TABLET PO SCH (08:13)
[2019-03-02] MEDS: FLUPHENAZINE HCL 10 MG TABLET PO SCH ×3 (08:13→16:38)
[2019-03-02] MEDS: FLUOXETINE HCL 20 MG/5 ML UDC PO SCH (08:14)
[2019-03-02] MEDS: Z GUARD REMEDY 2 OZ OINT TP SCH (08:17)
--- NOTE | 2019-03-02 10:09 | NUR ---
RN NOTE- PT COMPLAINING OF PAIN LOWER BACK PRN NORCO GIVEN
[2019-03-02 16:00] VITALS: BP 121/68
--- NOTE | 2019-03-02 19:09 | NUR ---
GPS/RN NOTE: RESTING COMFORTABLY, ASLEEP, BREATHING PATTERN NON-LABORED. NO APPARENT DISTRESS NOTED.
[2019-03-02 19:47] VITALS: BP 106/59
[2019-03-02] MEDS ORDERED: FLUPHENAZINE DECANOATE 25 MG/ML IM SCH (20:00)
[2019-03-02] MEDS: CYCLOBENZAPRINE 10 MG TABLET PO SCH (21:47)
--- NOTE | 2019-03-02 23:07 | NUR ---
GPS/RN NOTE: PATIENT AWAKE, C/O BACK PAIN, 7/10 ON PAIN SCALE, NORCO 5/325 MG TAB PO GIVEN.
--- NOTE | 2019-03-03 05:12 | NUR ---
GPS/RN NOTE: PATIENT NOTED 2X LOOSE WATERY STOOL FORM LAST NIGHT AND AT THIS TIME. INSTRUCTED TO USE THE COMMODE AT THE BEDSIDE NEXT BOWEL MOVEMENT, NEEDS SPECIMEN SENT TO LAB FOR TESTING.
--- NOTE | 2019-03-03 05:15 | NUR ---
GPS/RN NOTE: LATEST BP 127/77, PULSE 92, 97% SAT. ON ROOM AIR. LISINOPRIL 10 MG TAB PO GIVEN, LEVOTHYROXINE 112 MCG AND PANTOPRAZOLE 40 MG PO GIVEN .
[2019-03-03] MEDS: LISINOPRIL (10MG) 10 MG TABLET PO SCH (05:28)
[2019-03-03] MEDS: LEVOTHYROXINE SODIUM 112 MCG TABLET PO SCH (05:28)
[2019-03-03] MEDS: PANTOPRAZOLE 40 MG TABLET.DR PO SCH (05:28)
[2019-03-03 08:00] VITALS: BP 113/68
[2019-03-03] MEDS ORDERED: FLUPHENAZINE DECANOATE 25 MG/ML IM SCH (09:00)
[2019-03-03] MEDS: FLUPHENAZINE HCL 10 MG TABLET PO SCH ×3 (09:57→16:46)
[2019-03-03] MEDS: SPIRONOLACTONE 25 MG TABLET PO SCH (09:57)
[2019-03-03] MEDS: Z GUARD REMEDY 2 OZ OINT TP SCH (10:10)
[2019-03-03] MEDS: FLUOXETINE HCL 20 MG/5 ML UDC PO SCH (10:11)
[2019-03-03] MEDS ORDERED: LOPERAMIDE HCL (2 MG CAP) 2 MG CAPSULE PO PRN (10:30)
[2019-03-03] MEDS: HYDROCODONE/APAP 5/325MG 1 EACH TABLET PO PRN ×2 (12:56→19:15)
[2019-03-03 16:00] VITALS: BP 102/66
--- NOTE | 2019-03-03 18:41 | NUR ---
Some amount of resistance met by defeating her irrational thoughts about her treatment regimen of prolixin the patient took her by mouth doses. She was given her injectable monthly dose as well. She took her injection on the left lateral buttock side lying. Afterward she notes pain in generalized locations which was palliated with norco tablet. She was eventually wanting to get up and go back to the day room to visit with her unit group. She ambulates with assistance of her walker. It is easier to convince the patient to take her medication in front of a group of people. Will endorse care to night nurse. Jose Miguel Trujillo RN
--- NOTE | 2019-03-03 20:00 | NUR ---
GPS/RN NOTE: PATIENT UP AMBULATING WITH HER WALKER. INSTRUCTED TO CALL HER RN WHEN SHE HAS THE STOOL SPECIMEN NEEDED FOR TESTING, NO DIARRHEA NOTED AT THIS TIME. A/O X3, DENIES ANY PAIN AT THIS TIME. WILL CONTINUE TO MONITOR.
[2019-03-03 20:11] VITALS: BP 99/68
[2019-03-03] MEDS: CYCLOBENZAPRINE 10 MG TABLET PO SCH (22:11)
[2019-03-04] MEDS: HYDROCODONE/APAP 5/325MG 1 EACH TABLET PO PRN ×2 (02:57→11:59)
--- NOTE | 2019-03-04 02:58 | NUR ---
GPS/RN NOTE: PATIENT AWAKE, ASSISTED GOING TO THE BATHROOM, PASSED URINE, NO BOWEL MOVEMENT NOTED.
[2019-03-04] MEDS: PANTOPRAZOLE 40 MG TABLET.DR PO SCH (05:47)
[2019-03-04] MEDS: LISINOPRIL (10MG) 10 MG TABLET PO SCH (05:47)
[2019-03-04] MEDS: LEVOTHYROXINE SODIUM 112 MCG TABLET PO SCH (05:48)
--- NOTE | 2019-03-04 07:01 | NUR ---
GPS/RN NOTE: MARY BOWEL MOVEMENT THE WHOLE SHIFT, WENT TO THE BATHROOM X3 DURING THE SHIFT. ISOLATION FOR C-DIFF. NEED TO COLLECT STOOL FOR C-DIFF TESTING. SLEPT FOR 9 HOURS. AMBULATORY WITH WALKER.
[2019-03-04 07:32] LABS: BASOPHILS # (AUTO) 0.1 /CMM (0.0-0.2); BASOPHILS % (AUTO) 0.8 % (0.0-2.0); EOSINOPHILS % (AUTO) 3.1 % (0.0-6.0); HEMATOCRIT 36 % (33-45); HEMOGLOBIN 11.9 g/dL (11.5-14.8); LYMPHOCYTES # (AUTO) 1.9 /CMM (0.8-4.8); LYMPHOCYTES % (AUTO) 20.3 % (20.0-44.0); MEAN CORPUSCULAR HGB CONC 33 g/dl (31.0-36.0); MEAN CORPUSCULAR VOLUME 99 fL (82-100); MONOCYTES # (AUTO) 1.2 /CMM (0.1-1.30); NEUTROPHILS # (AUTO) 5.8 /CMM (1.8-8.9); NEUTROPHILS % (AUTO) 62.8 % (43.0-81.0); PLATELET COUNT (AUTO) 362 /CMM (150-450); RED BLOOD CELL COUNT(AUTO) 3.67 MIL/uL (4.0-5.2); WHITE BLOOD COUNT (AUTO) 9.2 K/uL (4.3-11.0)
[2019-03-04 07:36] LABS: CALCIUM, SERUM 9.5 mg/dL (8.5-10.1); CREATININE 1.1 mg/dL (0.6-1.3); MAGNESIUM 1.6 mg/dL (1.8-2.4); PHOSPHORUS 4.4 mg/dL (2.5-4.9); POTASSIUM 4.5 mmol/L (3.5-5.1)
[2019-03-04 08:00] VITALS: BP 97/62
[2019-03-04] MEDS: FLUPHENAZINE HCL 10 MG TABLET PO SCH ×3 (08:30→16:48)
[2019-03-04] MEDS: SPIRONOLACTONE 25 MG TABLET PO SCH (08:30)
[2019-03-04] MEDS: FLUOXETINE HCL 20 MG/5 ML UDC PO SCH (08:38)
[2019-03-04] MEDS: Z GUARD REMEDY 2 OZ OINT TP SCH (08:39)
[2019-03-04] MEDS ORDERED: MAGNESIUM OXIDE 400 MG TABLET PO ONE ×2 (10:00→10:30)
[2019-03-04] MEDS ORDERED: OLAN5TAB3 IM (15:07)
[2019-03-04 16:00] VITALS: BP 138/77
[2019-03-04] MEDS ORDERED: FLUPHENAZINE DECANOATE 25 MG/ML IM SCH (16:30)
[2019-03-04] MEDS ORDERED: OLANZAPINE 10 MG VIAL IM PRN (16:30)
--- NOTE | 2019-03-04 18:41 | NUR ---
Patient mostly angry with her situation. Does want to know her discharge date. Aware of her thirty day hold. Says she has been able to care for her home and she has three homes and they are all clean. Patient denies that she needs medication but takes it because she does not want injectable medication. Says the prolixin medication was making her stomach upset. When patient was directed to show vomit or diarrhea she flushes toilet or removes hat so that the stool/vomit is not able to be visualized. Claims the REGIONAL GUIDE's saw her vomit. REGIONAL GUIDEOsiris Ashton and Nel both deny report from patient about her vomit. Surgical Coordinator will endorse patient to night RN. Jose Miguel Trujillo RN
[2019-03-04 20:07] VITALS: BP 108/70
--- NOTE | 2019-03-04 20:15 | NUR ---
GPS RN NOTE PATIENT NOTED WITH LOOSE BM X 1, PROVIDED TOILET HAT TO COLLECT STOOL SPECIMEN & EDUCATED PT BUT PT. IS UNCOOPERATIVE WITH STOOL SPECIMEN COLLECTION. WAITED OUTSIDE WHILE PT. WAS IN THE TOILET, REMINDED PT. AGAIN TO SAVE STOOL SPECIMEN BUT PT. GOT UPSET & YELLED SAYING, " YES, I WILL DO IT" BUT WHEN PT. CAME OUT OF THE TOILET SHE HAD REMOVED THE HAT FROM THE TOILET & HAD BM DIRECTLY INTO THE TOILET INSTEAD OF SAVING THE STOOL SPECIMEN DESPITE OF EXPLANATION, PT WAS STILL NON COMPLIANT. 6:10 NO BM NOTED AT THIS TIME. WILL ENDORSE TO THE DAY SHIFT NURSE TO TRY TO COLLECT STOOL SPECIMEN FOR CONTINUITY OF CARE.
[2019-03-04] MEDS: CYCLOBENZAPRINE 10 MG TABLET PO SCH (21:06)
[2019-03-05] MEDS: LEVOTHYROXINE SODIUM 112 MCG TABLET PO SCH (06:55)
[2019-03-05] MEDS: PANTOPRAZOLE 40 MG TABLET.DR PO SCH (06:56)
[2019-03-05] MEDS: LISINOPRIL (10MG) 10 MG TABLET PO SCH (06:57)
--- NOTE | 2019-03-05 07:02 | NUR ---
GPS-RN PATIENT REFUSED WEEKLY SKIN ASSESSMENT DESPITE OF EDUCATION PROVIDED. WILL ENDORSE TO THE DAY SHIFT NURSE.
[2019-03-05 08:00] VITALS: BP 112/67
[2019-03-05] MEDS ORDERED: MAGNESIUM OXIDE 400 MG TABLET PO ONE (08:00)
[2019-03-05] MEDS: SPIRONOLACTONE 25 MG TABLET PO SCH (08:27)
[2019-03-05] MEDS: FLUPHENAZINE HCL 10 MG TABLET PO SCH ×3 (08:27→16:08)
[2019-03-05] MEDS: FLUOXETINE HCL 20 MG/5 ML UDC PO SCH (08:29)
[2019-03-05] MEDS: Z GUARD REMEDY 2 OZ OINT TP SCH (08:30)
[2019-03-05] MEDS: HYDROCODONE/APAP 5/325MG 1 EACH TABLET PO PRN (15:34)
[2019-03-05 16:00] VITALS: BP 121/72
--- NOTE | 2019-03-05 16:02 | NUR ---
SS Group Note 03/05/19: SW went to patient's room to invite patient to attend today's support group at 2:00pm regarding recognizing positive aspects in their life. Patient presented laying on her bed sleeping. SW attempted to wake pt. However, pt. was not easily roused. SW will invite pt. to attend next SS Group.
[2019-03-05 21:02] VITALS: BP 117/76
[2019-03-05] MEDS: CYCLOBENZAPRINE 10 MG TABLET PO SCH (21:33)
[2019-03-06] MEDS: HYDROCODONE/APAP 5/325MG 1 EACH TABLET PO PRN ×2 (04:07→16:52)
[2019-03-06] MEDS: PANTOPRAZOLE 40 MG TABLET.DR PO SCH (06:16)
[2019-03-06] MEDS: LISINOPRIL (10MG) 10 MG TABLET PO SCH (06:16)
[2019-03-06] MEDS: LEVOTHYROXINE SODIUM 112 MCG TABLET PO SCH (06:17)
[2019-03-06 08:00] VITALS: BP 100/59
[2019-03-06] MEDS: FLUOXETINE HCL 20 MG/5 ML UDC PO SCH (08:19)
[2019-03-06] MEDS: FLUPHENAZINE HCL 10 MG TABLET PO SCH ×3 (08:20→16:51)
[2019-03-06] MEDS: SPIRONOLACTONE 25 MG TABLET PO SCH (08:20)
[2019-03-06] MEDS: Z GUARD REMEDY 2 OZ OINT TP SCH (08:20)
--- NOTE | 2019-03-06 08:43 | NUR ---
JEN FAXED SNF REFERRAL to Olvin, physician practice coordinator at [facility] Address: [address], [place] [address] for review.
--- NOTE | 2019-03-06 09:02 | NUR ---
SNF CONTACT: SW received a call from Olvin, quality management coordinator at [facility] Address: [address] [place] [address] stating pt cannot be accepted to the facility due to not meeting criteria for SNF placement. Per Olvin pt does not have any medical needs or physical therapy needs.
--- NOTE | 2019-03-06 11:46 | NUR ---
SNF CONTACT: SW received a call from Olvin, staffing and scheduling coordinator at [facility] Address: [address], [place] [address] stating [facility] and [facility] have reviewed referral and have agreed to accept pt and have assigned her to room 30B.
[2019-03-06 16:00] VITALS: BP 99/53
--- NOTE | 2019-03-06 16:57 | NUR ---
PATIENT C/O PAIN. PRN NORCO GIVEN.
[2019-03-06 21:12] VITALS: BP 97/57
[2019-03-06] MEDS: CYCLOBENZAPRINE 10 MG TABLET PO SCH (21:37)
[2019-03-07] MEDS: HYDROCODONE/APAP 5/325MG 1 EACH TABLET PO PRN ×2 (01:50→10:35)
--- NOTE | 2019-03-07 01:51 | NUR ---
given prn norco 5/325mg d/t pt complaint of pain to lower back.
[2019-03-07] MEDS: LEVOTHYROXINE SODIUM 112 MCG TABLET PO SCH ×2 (05:58→08:02)
[2019-03-07] MEDS: PANTOPRAZOLE 40 MG TABLET.DR PO SCH ×2 (05:58→08:02)
[2019-03-07] MEDS: LISINOPRIL (10MG) 10 MG TABLET PO SCH (05:58)
[2019-03-07 08:00] VITALS: BP 103/67
[2019-03-07] MEDS: FLUPHENAZINE HCL 10 MG TABLET PO SCH ×2 (08:02→12:25)
[2019-03-07] MEDS: SPIRONOLACTONE 25 MG TABLET PO SCH (08:02)
[2019-03-07] MEDS: FLUOXETINE HCL 20 MG/5 ML UDC PO SCH (08:10)
--- NOTE | 2019-03-07 08:10 | NUR ---
RN NOTE: PATIENT REFUSED 0900 PROZAC.
[2019-03-07] MEDS: Z GUARD REMEDY 2 OZ OINT TP SCH (08:11)
--- NOTE | 2019-03-07 10:08 | NUR ---
DISCHARGE NOTE: Pt will be discharged at 11:00am via [facility] to [facility] ([facility] Address: [address] [place] [address] Room 30B. Pts has no family to notify. Pts mood is labile with congruent affect. Pt denied visual/auditory hallucinations and denied suicidal/homicidal ideation. Pt will be under the care of Psychiatrist: Dr. Naomi Gresham [address] [place] [address] [phone] and Scalemaker: Dr. Toro Burgess [address] [id number] [phone]. The multidisciplinary exit care form was done, printed, signed, and given to the patient. Addendum: 03/07/19 at 1156 by ALEXUS LI DISCHARGE WAS CANCELLED PT REFUSED TO LEAVE. Pt stated that she refuses to go to a SNF and that she wishes to be transferred to [facility] or return home, SW explained that both those discharged were not options as per hospital policy she cannot be transferred to another hospital from this hospital and also explained that her living conditions are not safe as she is unable to care for herself and her home is inhabitable. Pt refused to cooperate and stated that SW was lying and that the hospital just wanted to keep her money and that she was currently suing the hospital for millions of dollars. Pt is delusional and paranoid with impaired insight and judgement. JEN will continue attempting to safely discharge pt.
--- NOTE | 2019-03-07 10:35 | NUR ---
PATIENT C/O PAIN, PRN NORCO PO GIVEN.
--- NOTE | 2019-03-07 14:07 | NUR ---
MANAGER ARMY NOTE: PATIENT IS A 73 YEAR OLD FEMALE DISCHARGED TO [facility] ([facility]) [address] [facility] [address] . PATIENT IS IN STABLE CONDITION. VSS. NO ACUTE DISTRESS NOTED. COMPLIANT WITH MEDICATION MANAGEMENT. COOPERATIVE WITH PLAN OF CARE. PSYCHIATRIC TREATMENT PLANS MET. MEDICAL TREATMENT PLANS DEFERRED FOR CONTINUAL MONITORING. DENIES SI/HI AT THE TIME OF DISCHARGE. SKIN CHECK REFUSED. EDUCATED PATIENT ABOUT AFTERCARE WITH COPY PROVIDED. RETURNED PERSONAL BELONGINGS TO PATIENT WITH CN WITNESS. MEDICATIONS RECONCILED WITH DR WALKER AND ALLIE ALONG WITH PSYCHIATRIC DISCHARGE ORDERS. DISCHARGE PAPERWORK SIGNED. FOR FOLLOW UP WITH PSYCHIATRIST DR ZINA WALKER [address] [place], [place] [address] AND SUPERVISOR CIGARETTE MAKING DEPARTMENT DR RUSS [address] [facility] [facility] [address] IN 1 WEEK. PATIENT LEFT [facility] VIA AMBULANCE AT 1355.
[2019-04-02] MEDS ORDERED: FLUPHENAZINE DECANOATE 25 MG/ML IM SCH (10:00)
== END 2019-03-07 13:55 | DRG 881 ==
LOC: ER 02:03 → GPS 04:10
PROVIDERS: ADMIT Psychiatry & Neurology Psychiatry; ATTEND Nurse Practitioner Acute Care
DX: F32.9 Major depressive disorder, single episode, unspecified (principal); G92 Toxic encephalopathy; E87.1 Hypo-osmolality and hyponatremia; N39.0 Urinary tract infection, site not specified; F29 Unspecified psychosis not due to a substance or known physiological condition; F41.9 Anxiety disorder, unspecified; K21.9 Gastro-esophageal reflux disease without esophagitis; I48.91 Unspecified atrial fibrillation; E86.0 Dehydration; E83.42 Hypomagnesemia; E87.6 Hypokalemia; K58.9 Irritable bowel syndrome, unspecified; Z98.890 Other specified postprocedural states; Z88.8 Allergy status to other drugs, medicaments and biological substances; Z79.899 Other long term (current) drug therapy; Z73.6 Limitation of activities due to disability; D69.6 Thrombocytopenia, unspecified; D64.9 Anemia, unspecified; E03.9 Hypothyroidism, unspecified; F84.0 Autistic disorder; G89.29 Other chronic pain; B96.89 Other specified bacterial agents as the cause of diseases classified elsewhere; H40.9 Unspecified glaucoma; I10 Essential (primary) hypertension; K58.0 Irritable bowel syndrome with diarrhea; R56.9 Unspecified convulsions
CPT/HCPCS: 36415; 80048-TC; 80061-TC; 80076-TC; 80305; 81000-TC; 82565-TC; 83735-TC; 84100-TC; 85025-TC; 87081-TC; 87086-TC; 97116-TC; 97530-TC; G0480; J1630; J2680; J3230; Q0162